=== PATIENT | female | born 2000 | race Caucasian/White ===

== ENCOUNTER → 2021-12-07 15:18 | Outpatient (CLI) | payer OTHER, SELFPAY ==
--- NOTE | ~2021-12-07 | US_ITS ---
EXAMINATION: US OB <= 14 weeks fetus DATE: 12/07/2021 15:45 INDICATION: Uncertain gestational dates TECHNIQUE: Real-time transabdominal and transvaginal obstetric ultrasound. FINDINGS: No prior studies for comparison. The uterus measures 12.1 x 8.2 x 8.7 cm. There is an intrauterine gestational sac, with pole id entified. The crown rump length measures 5.21 cm, which correlates with a estimated gestational age of 11 weeks 6 days. heart tones are identified measuring 161 bpm. IMPRESSION: 1. SL IUP with an EGA of 11 weeks, 6 days (EDC by current ultrasound of 06/22/2022). Reviewed, dictated and finalized at location B. IMPRESSION: 1. SL IUP with an EGA of 11 weeks, 6 days (EDC by current ultrasound of 022).
== END ==
PROVIDERS: PCP Nurse Practitioner; Visit Provider Nurse Practitioner
DX: Z36.87 Encounter for antenatal screening for uncertain dates (principal); Z3A.11 11 weeks gestation of pregnancy
CPT/HCPCS: 76801

== ENCOUNTER 2021-12-28 17:07 | Emergency (ER) | payer OTHER, SELFPAY ==
--- NOTE | 2021-12-28 17:09 | ED.URI ---
HPI - URI/Sore Throat General Chief Complaint: Upper Respiratory Infection Stated Complaint: sore throat Time Seen by Provider: 12/28/21 17:09 Source: patient and RN notes reviewed History of Present Illness HPI Narrative: Patient is a 21-year-old female who presents the urgent care with complaints of a sore throat for the last 2 days. Patient denies of any fever, chills, nausea or vomiting but does state that she has had a headache and some body aches intermittently. Patient denies of any ill exposures and states that she does not have a concern for COVID. Patient states that she is and wants to make sure she does not need treatment for strep. Patient has not taken anything [id number] for her symptoms. No other acute complaints. No acute distress noted. Patient aware of the plan of care. Some parts of this dictation were generated by voice recognition software and may contain typographical and/or grammatical inaccuracies. Related Data Home Medications Medication Instructions Recorded Confirmed mv-mn no.97-folic 180 mcg-dha 25 1 tablet PO DAILY 12/28/21 12/28/21 mg-herb no.293 25 mg chewable tablet (Alive Daily Support ) Allergies Allergy/AdvReac Type Severity Reaction Status Date / Time Penicillins Allergy Intermediate Hives / Verified 12/28/21 17:11 Red Face Review of Systems Review of Systems: CONSTITUTIONAL: Denies fever, chills, or sweats. EYES: Denies visual changes, redness, or discharge. ENT: Denies rhinorrhea, congestion, or otalgia. Reports of a sore throat CARDIOVASCULAR: Denies chest pain, palpitations, or edema. RESPIRATORY: Denies cough or dyspnea. GASTROINTESTINAL: Denies abdominal pain, nausea, vomiting, or diarrhea. GENITOURINARY: Denies dysuria or hematuria. SKIN: Denies rash or itching. MUSCULOSKELETAL: Denies back pain, joint pain, or myalgia. NEUROLOGIC: Reports of intermittent headache All other systems reviewed are negative, except as documented in HPI. [facility] Surgical History Surgical History (Updated 05/04/19 @ 10:[address] CRNA) S/P cholecystectomy Family History Family History (Updated 05/01/19 @ 13:23 by Crystal Hanley RN) Other Unknown family medical history Social History Social History Smoking status: Never smoker Second hand tobacco smoke exposure: No Substance use: never Gender identity (if verbalized by the patient): Female Spiritual care concerns: No Comments At the time of my signature, I reviewed and agree with the nursing past medical, surgical, social, and family history. There is no relevant family history pertinent to the patient complaint. Exam Narrative: GENERAL: This is a well-nourished, well-developed patient, in no apparent distress. HEAD: normocephalic, atraumatic. EYES: PERRL. Sclera clear/white. Vision is grossly intact. EARS: External ears normal, auditory canals clear and without drainage, TMs normal without perforation. Hearing grossly intact. NOSE: External nose normal with no obvious nasal discharge, nares without redness, no rhinorrhea. THROAT: Mucous membranes moist, posterior pharynx clear. Moderate postnasal drainage NECK: Neck supple, non-tender without lymphadenopathy CARDIOVASCULAR: Regular rate and rhythm without murmurs, gallops, or rubs. RESPIRATORY: Clear to auscultation. Breath sounds equal bilaterally. No wheezes, rales, or rhonchi. SKIN: warm, intact with no suspicious lesions or rash, good texture and turgor. NEURO: awake, alert, and oriented to person, place and time. There were no obvious focal neurologic abnormalities. EXTREMITIES: No clubbing, cyanosis, or edema. Course Course Level of Care: Express Care Visit Vital Signs Vital signs: Vital Signs Temperature 99.0 F 12/28/21 17:18 Pulse Rate 105 H 12/28/21 17:18 Respiratory Rate 16 12/28/21 17:18 Blood Pressure 126/65 12/28/21 17:18 Pulse Oximetry 100 12/28/21 17:18 Oxygen Delivery
[2021-12-28 17:18] VITALS: BP 126/65; PULSE 105; RESP 16; TEMP 37.2; O2SAT 100
[2021-12-28 17:33] VITALS: BP 126/65; PULSE 105; RESP 16; TEMP 37.2; O2SAT 100
== END 2021-12-28 17:45 | disposition home or self-care (01) ==
PROVIDERS: Emergency Provider Nurse Practitioner Family; PCP Family Medicine
DX: J02.9 Acute pharyngitis, unspecified (principal)
CPT/HCPCS: 87081; 87880; 99213; G0463

== ENCOUNTER → 2022-01-29 11:30 | Outpatient (CLI) | payer OTHER, SELFPAY ==
--- NOTE | ~2022-01-29 | US_ITS ---
EXAMINATION: US OB /maternal detail DATE: 01/29/2022 12:10 INDICATION: Encounter for screening, unspecified. TECHNIQUE: Real-time ultrasound of the pelvis was performed. COMPARISON: Ultrasound 12/07/2021 FINDINGS: There is a single living fetus in vertex presentation. The placenta is posterior, 5.4 cm from the ce rvix. The cervical length is 3.6 cm on transabdominal images. heart rate is 138 beats per minut e (bpm). The amniotic fluid volume is subjectively normal. The following biometric data were obtained: Biparietal diameter (BPD): 4.5 cm; head circumference (HC): 16.8 cm; abdominal circumference (AC): 14 .3 cm; femur length (FL): 3.0 cm. These measurements are concordant. Estimated weight is 292 g +/- 44 g, which correlates with the 45th percentile when 06/22/22 is used as estimated date of delivery. As single measurements, these parameters are each equal to the following estimated gestational ages w ith ranges of +/- 2 standard deviations: BPD: 19 weeks 5 days (18 weeks 0 days - 21 weeks 3 days). HC: 19 weeks 3 days (18 weeks 0 days - 21 weeks 0 days). AC: 19 weeks 4 days (17 weeks 4 days - 21 weeks 5 days). FL: 19 weeks 1 days (17 weeks 3 days - 21 weeks 0 days). estimated gestational age based solely on measurements from this exam is 19 weeks 3 days +/- 1 weeks 3 days. The cerebral ventricles, cerebellum, cisterna magna, nuchal fold, lip, and visualized portions of the spine are normal. The heart is normal. The diaphragm, stomach, kidneys, and bladder are normal. Ther e are two umbilical arteries to yield a 3-vessel cord. The cord insertion is normal. IMPRESSION: 1. Single living fetus in vertex presentation. 2. Estimated weight is 292 g +/- 44 g, which correlates with the 45th percentile when 06/22/22 is used as estimated date of delivery. This date was determined by ultrasound on 12/07/2021. 3. Normal anatomic survey. Reviewed, dictated and finalized at location A. IMPRESSION: 1. Single living fetus in vertex presentation. 2. Estimated weight is 292 g +/- 44 g, which correlates with the 45th pe rcentile when 06/22/22 is used as estimated date of delivery. This date was det ermined by ultrasound on 12/07/2021. 3. Normal anatomic survey.
== END ==
PROVIDERS: PCP Advanced Practice Midwife; Visit Provider Advanced Practice Midwife
DX: Z36.9 Encounter for antenatal screening, unspecified (principal)
CPT/HCPCS: 76805

== ENCOUNTER 2022-05-23 16:00 | Outpatient (CLI) | payer OTHER, MEDICAID, SELFPAY ==
[2022-05-23 16:33] VITALS: BP 136/70; PULSE 89
[2022-05-23 16:45] VITALS: BP 132/72; PULSE 85
[2022-05-23 16:46] LABS: Basophils Percent Auto 0.1 % (0.2-1.2); Eosinophils Absolute Auto 0.1 K/mm3 (0-0.3); Hematocrit 30.9 % (37.0-47.0); Hemoglobin 10.1 g/dL (12.0-15.0); Immature Granulocyte Absolute 0.05 K/mm3 (0.00-0.031); Immature Granulocyte Percent A 0.5 % (0-0.5); Lymphocytes Absolute Auto 1.85 K/mm3 (0.9-3.2); Lymphocytes Percent Auto 19.7 % (18.3-44.2); Mean Corpuscular HGB Conc 32.7 g/dl (32-36); Mean Corpuscular Hemoglobin 27.9 pg (26-34); Mean Corpuscular Volume 85.4 fl (80-100); Monocytes Absolute Auto 0.8 K/mm3 (0.1-0.6); Monocytes Percent Auto 8.5 % (2.6-8.5); Neutrophils Absolute Auto 6.6 K/mm3 (1.3-6.7); Neutrophils Percent Auto 70.2 % (45.5-73.1); Platelet Count Result 213 k/mm3 (150-375); Red Blood Count 3.62 M/mm3 (4.2-5.4); Red Cell Distribution Width 14.1 % (11.5-14.5); White Blood Count 9.4 K/mm3 (4.5-10.0)
[2022-05-23 16:58] LABS: Alanine Aminotransferase 14 U/L (6-35); Albumin Level 3.6 g/dL (3.5-5.1); Alkaline Phosphatase 125 U/L (38-126); Anion Gap 7 mmol/L (8-16); Aspartate Amino Transferase 22 U/L (14-36); Bilirubin,Total 0.2 mg/dL (0.2-1.3); Blood Urea Nitrogen 6 mg/dL (7-17); Calcium 9.3 mg/dL (8.4-10.2); Carbon Dioxide 22 mmol/L (22-30); Chloride 107 mmol/L (98-107); Estimated Glomerular Filt Rate > 60; Glucose 103 mg/dL (65-110); Potassium 3.7 mmol/L (3.4-5.0); Sodium 136 mmol/L (137-145); Uric Acid 3.3 mg/dL (2.5-7.5)
[2022-05-23 17:00] VITALS: BP 122/81; PULSE 95
[2022-05-23 17:00] LABS: Creatinine Urine 66.3 mg/dL; Total Protein Urine Random 16 mg/dL; Ur Ttl Prot Creatinine Ratio 0.24 mg/mg (0-0.20)
--- NOTE | 2022-05-23 17:06 | PC.NURSE ---
Taylor BELLA updated with pt vs and labs. tracing reviewed with provider. Pt to complete 24hour urine and continue checking blood pressures twice a day.
[2022-05-23 17:10] VITALS: BP 136/70; PULSE 67
[2022-05-23 17:15] VITALS: BMI 39.0
--- NOTE | 2022-05-23 17:15 | PC.NURSE ---
Pt instructed on how to do 24 hour urine. Pt states she understands and will continue to check her pressures twice a day.
== END 2022-05-23 17:15 | disposition home or self-care (01) ==
LOC: ANHOBOP 16:18 → ANHLDR 16:18
PROVIDERS: Advanced Practice Midwife; PCP Family Medicine; Visit Provider Obstetrics & Gynecology Gynecology
DX: O13.9 Gestational [pregnancy-induced] hypertension without significant proteinuria, unspecified trimester (principal); Z3A.00 Weeks of gestation of pregnancy not specified
CPT/HCPCS: 36415; 59025; 80053; 82570; 84156; 84550; 85025; 99199

== ENCOUNTER 2022-05-25 11:35 | Outpatient (NON) | payer OTHER, SELFPAY ==
[2022-05-25 11:35] VITALS: BMI 38.8
[2022-05-25 14:21] LABS: Collection Time Urine 24 HOURS
[2022-05-25 14:23] LABS: Patient Weight 219 Lbs
[2022-05-25 14:25] LABS: Total Volume 24 Hour Urine 2200 ml
[2022-05-25 14:32] LABS: Total Protein Urine 24 Hr 220 mg/24hr (28-141); Total Protein Urine Random 10 mg/dL
[2022-05-25 14:33] LABS: Creatinine Urine 73.7 mg/dL
[2022-05-25 14:57] LABS: Creatinine Clearance Urine 194.5 ml/min (75-125); Total Volume 24 Hour Urine 2200 ml
== END 2022-05-25 11:36 | disposition home or self-care (01) ==
LOC: ANHOBOP 11:42
PROVIDERS: PCP Family Medicine; Visit Provider Advanced Practice Midwife
DX: O13.9 Gestational [pregnancy-induced] hypertension without significant proteinuria, unspecified trimester (principal); Z3A.00 Weeks of gestation of pregnancy not specified
CPT/HCPCS: 81050; 82575; 84156

== ENCOUNTER → 2022-06-02 10:47 | Outpatient (CLI) | payer OTHER, SELFPAY ==
--- NOTE | ~2022-06-02 | US_ITS ---
EXAMINATION: US OB follow up DATE: 06/02/2022 11:23 INDICATION: Size greater than dates. TECHNIQUE: Real-time transabdominal obstetric ultrasound. FINDINGS: Comparison to multiple prior studies sequentially, with oldest reviewed study dated 2021. There is a single living fetus in vertex presentation. The placenta is posterior without placenta pr evia. cardiac activity and movement is noted with a heart rate of 153 beats per minute. T he amniotic fluid volume is normal. [place] measures 15.8 cm. The following biometric data were obtained: BPD: 92mm corresponds to gestational age 37 weeks 3 days. Head circumference: 328mm corresponds to gestational age 37 weeks 2 days. Abdominal circumference: 335mm corresponds to gestational age 37 weeks 3 days. Femur length: 62mm corresponds to gestational age 32 weeks 2 days. Estimated weight: 2862grams +/- 429grams, 30.6%.] IMPRESSION: 1. Single living intrauterine in vertex presentation with an estimated gestational age of 37 weeks 1 days by inititial ultrasound. Appropriate interval growth. 2. Normal placenta. Reviewed, dictated and finalized at location A. AGE WINDER IMPRESSION: 1. Single living intrauterine in vertex presentation with an estimat ed gestational age of 37 weeks 1 days by inititial ultrasound. Appropriate int erval growth. 2. Normal placenta.
== END ==
PROVIDERS: PCP Family Medicine; Visit Provider Advanced Practice Midwife
DX: O36.63X0 Maternal care for excessive fetal growth, third trimester, not applicable or unspecified (principal); Z3A.37 37 weeks gestation of pregnancy
CPT/HCPCS: 76816

== ENCOUNTER 2022-06-04 06:25 | Inpatient (IN) | payer OTHER, SELFPAY ==
[2022-06-04] VITALS (57 sets, daily range): BP systolic 56–159; BP diastolic 33–103; PULSE 77–167; RESP 18; TEMP 36.8–37.2; O2SAT 97–100; BMI 37.4
--- NOTE | 2022-06-04 07:09 | LDADM ---
This patient, Nevaeh Curry, was admitted to Labor/Delivery/Recovery 106 on 06/04/22 at 06:25. Plans for labor, pain management and were discussed with patient. Patient/family oriented to hospital policies and general routines including ID bracelet, bed and alarms, visiting hours, pain management, procedures, bathroom and other care routines, personal items, smoking policy, room service/diet and guest tray routines, security routines, and visiting hours. Patient/Family are encouraged to report perceived risks to care and to ask questions if they do not understand what they are told or what they should do. See OBIX for further documentation.
[2022-06-04 07:16] LABS: Basophils Percent Auto 0.2 % (0.2-1.2); Eosinophils Absolute Auto 0.1 K/mm3 (0-0.3); Eosinophils Percent Auto 1.1 % (0-4.4); Hematocrit 31.8 % (37.0-47.0); Hemoglobin 10.6 g/dL (12.0-15.0); Immature Granulocyte Absolute 0.05 K/mm3 (0.00-0.031); Immature Granulocyte Percent A 0.6 % (0-0.5); Lymphocytes Percent Auto 12.6 % (18.3-44.2); Mean Corpuscular HGB Conc 33.3 g/dl (32-36); Mean Corpuscular Hemoglobin 27.6 pg (26-34); Mean Corpuscular Volume 82.8 fl (80-100); Mean Platelet Volume 10.4 fl (7.4-10.4); Monocytes Percent Auto 11.9 % (2.6-8.5); Neutrophils Absolute Auto 6.5 K/mm3 (1.3-6.7); Neutrophils Percent Auto 73.6 % (45.5-73.1); Platelet Count Result 191 k/mm3 (150-375); Red Blood Count 3.84 M/mm3 (4.2-5.4); Red Cell Distribution Width 14.3 % (11.5-14.5); White Blood Count 8.8 K/mm3 (4.5-10.0)
[2022-06-04] MEDS: LACTATED RINGERS 1,000 ML 125 ML IV CONT ×2 (07:20→14:30)
[2022-06-04] MEDS: OXYTOCIN 30 UNITS/NS 500 ML 30 UNITS/500 ML BAG IV CONT (07:20)
[2022-06-04] MEDS: CLINDAMYCIN 900 MG/D5W 50 ML 900 MG/50 ML PIGGYBACK 50 MG IVPB ×2 (07:20→15:20)
[2022-06-04 07:27] LABS: Alanine Aminotransferase 15 U/L (6-35); Albumin Level 3.5 g/dL (3.5-5.1); Alkaline Phosphatase 134 U/L (38-126); Anion Gap 8 mmol/L (8-16); Aspartate Amino Transferase 23 U/L (14-36); Bilirubin,Total 0.3 mg/dL (0.2-1.3); Blood Urea Nitrogen 6 mg/dL (7-17); Calcium 8.8 mg/dL (8.4-10.2); Carbon Dioxide 22 mmol/L (22-30); Chloride 107 mmol/L (98-107); Estimated CRCL calculation 167 ml/min; Estimated Glomerular Filt Rate > 60; Glucose 86 mg/dL (65-110); Potassium 3.7 mmol/L (3.4-5.0); Sodium 137 mmol/L (137-145); Uric Acid 3.5 mg/dL (2.5-7.5)
--- NOTE | 2022-06-04 08:30 | WPDOBADMIT ---
Obstetrics - Admit Note Admission Note: record reviewed. No pertinent additions to the history and/or any subsequent changes in the physical findings that are not consistent with the expected course of the were found. Additions to the history and/or subsequent changes in the physical findings follow. None.
[2022-06-04 11:53] LABS: Rapid Plasma Reagin Non-Reactive (NonReactive)
--- NOTE | 2022-06-04 13:11 | PM.OBPNLAB ---
Pain Control Date/time seen: 06/04/22 13:05 Pain control: tolerating well Pelvic Exam Dilation (cm): 4 Effacement (%): 70 station: -3 Amniotic membrane status: Intact Contractions Monitor mode: External Contraction pattern: Irregular Status status: Category l Assessment and Plan Assessment: induction ongoing Comments: Discussed plan of care with Nevaeh and her partner. Discussed amniotomy risks and benefits and she is agreeable. AROM performed with return of moderate amount of clear fluid. Continue oxytocin infusion. Anticipate vaginal .
--- NOTE | 2022-06-04 15:08 | WPDANESEPP ---
Anes - Eval Pre Procedure Procedure: Labor epidural Date/Time: 06/04/22 15:08 Surgeon: Bridget Preop Diagnosis: Pain during labor Pre Op Diagnosis: Induction of Labor Patient Data Age: 22 Gender: F Height: 1.63 m Weight: 99 kg Last Vital Signs Temp 37.0 C 06/04/22 09:30 Pulse 81 06/04/22 14:30 BP 145/89 H 06/04/22 14:30 O2 Del Method Room Air 06/04/22 07:08 Allergies Allergy/AdvReac Type Severity Reaction Status Date / Time Penicillins Allergy Intermediate Hives / Verified 05/23/22 15:50 Red Face Home Medications Medication Instructions Recorded Confirmed Type mv-mn no.97-folic 180 mcg-dha 25 1 tablet PO DAILY 12/28/21 06/04/22 History mg-herb no.293 25 mg chewable tablet (Alive Daily Support ) Laboratory Tests 06/04/22 06/04/22 06/04/22 07:03 07:03 07:03 WBC 8.8 K/mm3 K/mm3 (4.5-10.0) RBC 3.84 M/mm3 L M/mm3 (4.2-5.4) Hgb 10.6 g/dL L g/dL (12.0-15.0) Hct 31.8 % L % (37.0-47.0) MCV 82.8 fl fl (80-100) MCH 27.6 pg pg (26-34) MCHC 33.3 g/dl g/dl (32-36) RDW 14.3 % % (11.5-14.5) Plt Count 191 k/mm3 k/mm3 (150-375) MPV 10.4 fl fl (7.4-10.4) Immature Gran % (Auto) 0.6 % H % (0-0.5) Neut % (Auto) 73.6 % H % (45.5-73.1) Lymph % (Auto) 12.6 % L % (18.3-44.2) [place] % (Auto) 11.9 % H % (2.6-8.5) Eos % (Auto) 1.1 % % (0-4.4) Baso % (Auto) 0.2 % % (0.2-1.2) Lymph # (Auto) 1.10 K/mm3 K/mm3 (0.9-3.2) [place] # (Auto) 1.0 K/mm3 H K/mm3 (0.1-0.6) Eos # (Auto) 0.1 K/mm3 K/mm3 (0-0.3) Baso # (Auto) 0.0 K/mm3 K/mm3 (0.0-0.1) Abs Immat Gran (auto) 0.05 K/mm3 H K/mm3 (0.00-0.031) Absolute Neuts (auto) 6.5 K/mm3 K/mm3 (1.3-6.7) Absolute Nucleated RBC 0.0 K/mm3 K/mm3 (0.0-0.012) Nucleated RBC % 0.0 % % (0.0-0.2) Sodium Potassium Chloride Carbon Dioxide Anion Gap BUN Creatinine Estim Creat Clear Calc Estimated GFR Glucose Uric Acid Cancelled Calcium Total Bilirubin AST ALT Alkaline Phosphatase Total Protein Albumin RPR Non-reactive (NonReactive) Blood Type Antibody Screen 06/04/22 06/04/22 07:03 07:03 WBC RBC Hgb Hct MCV MCH MCHC RDW Plt Count MPV Immature Gran % (Auto) Neut % (Auto) Lymph % (Auto) [place] % (Auto) Eos % (Auto) Baso % (Auto) Lymph # (Auto) [place] # (Auto) Eos # (Auto) Baso # (Auto) Abs Immat Gran (auto) Absolute Neuts (auto) Absolute Nucleated RBC Nucleated RBC % Sodium 137 mmol/L mmol/L (137-145) Potassium 3.7 mmol/L mmol/L (3.4-5.0) Chloride 107 mmol/L mmol/L (98-107) Carbon Dioxide 22 mmol/L mmol/L (22-30) Anion Gap 8 mmol/L mmol/L (8-16) BUN 6 mg/dL L mg/dL (7-17) Creatinine 0.50 mg/dL L mg/dL (0.7-1.0) Estim Creat Clear Calc 167 ml/min ml/min Estimated GFR > 60 (59 - ) Glucose 86 mg/dL mg/dL (65-110) Uric Acid 3.5 mg/dL mg/dL (2.5-7.5) Calcium 8.8 mg/dL mg/dL (8.4-10.2) Total Bilirubin 0.3 mg/dL mg/dL (0.2-1.3) AST 23 U/L U/L (14-36) ALT 15 U/L U/L (6-35) Alkaline Phosphatase 134 U/L H U/L (38-126) Total Protein 7.0 g/dL g/dL (6.3-8.2) Albumin 3.5 g/dL g/dL (3.5-5.1) RPR Blood Type A Positive Antibody Screen Negative
--- NOTE | 2022-06-04 16:32 | PM.OBPRVD ---
OB - Delivery Note Procedure Delivery date: 06/04/22 Procedure: Events: Gestational Hypertension and Positive Group B Strep (GBS) Induction method: AROM and Per Pitocin Protocol Delivery monitor: External FHT and External Uterine Route of delivery: Episiotomy description: None Laceration Description: None Specimen: Yes Quantitative Blood Loss (ml): 150 Anesthesia type: Epidural Disposition: Floor Narrative: CNM called for delivery. Patient complete with the urge to push. She pushed with contractions and quickly brought the head to . After the delivery of the head there was excellent restitution followed by delivery of anterior and posterior shoulders. The remainder of the infant was delivered easily and placed on maternal abdomen for care by the Nursery team. After 2 minutes of life the cord was doubly clamped and cut. Cord blood and cord gases were obtained. All every counts were correct. Baby Date of : 06/04/22 Time of : 16:11 Weeks of gestation at delivery: 37 Infant gender: Male Weight (pounds): 7 Weight (ounces): 10 presentation: vertex position: Right Occiput Anterior Placenta delivery description: Spontaneous and Normal Configuration Cord Vessel Description: 3 Vessels score one minute: 8 score five minutes: 9
--- NOTE | 2022-06-04 16:40 | PM.OBDSVD ---
DS: Admitting Diagnosis Discharge Date 06/05/22 Admitting Diagnosis IUP at 37 weeks 3 days. GHTN History of Headaches DS: Discharge Diagnosis Discharge Diagnosis (1) Vaginal delivery: Code(s): O80 - Encounter for full-term uncomplicated delivery Status: Acute Assessment and Plan: Perineum intact. Lochia WNL. (2) Gestational hypertension affecting second : Code(s): O13.9 - Gestational [-induced] hypertension without significant proteinuria, unspecified trimester Status: Acute Assessment and Plan: BPs WNL. OB - DS: Summary Hospital Course Hospital Course: Uncomplicated OB Procedures : Ultrasound OB Procedures Intrapartum: Spontaneous Vag Delivery and GBS prophylaxis OB Procedures: : None Peripartum Data Delivery Method: Natural Vaginal Laceration Description: None Episiotomy description: None complications: none Status at Discharge Functional status at discharge: independent ambulation Overall status at discharge: patient is progressing back to baseline Time Spent with Patient Time attestation: Total time spent providing and/or coordinating discharge services: DS: Data Data Completed and Pending Labs on day of discharge: Labs from last 24 hours 06/04/22 06/04/22 06/04/22 07:03 07:03 07:03 WBC RBC Hgb Hct MCV MCH MCHC RDW Plt Count MPV Immature Gran % (Auto) Neut % (Auto) Lymph % (Auto) [place] % (Auto) Eos % (Auto) Baso % (Auto) Lymph # (Auto) [place] # (Auto) Eos # (Auto) Baso # (Auto) Abs Immat Gran (auto) Absolute Neuts (auto) Absolute Nucleated RBC Nucleated RBC % Sodium 137 Potassium 3.7 Chloride 107 Carbon Dioxide 22 Anion Gap 8 BUN 6 L Creatinine 0.50 L Estim Creat Clear Calc 167 Estimated GFR > 60 Glucose 86 Uric Acid 3.5 Calcium 8.8 Total Bilirubin 0.3 AST 23 ALT 15 Alkaline Phosphatase 134 H Total Protein 7.0 Albumin 3.5 RPR Non-reactive Blood Type A Positive Antibody Screen Negative 06/04/22 06/04/22 07:03 07:03 WBC 8.8 RBC 3.84 L Hgb 10.6 L Hct 31.8 L MCV 82.8 MCH 27.6 MCHC 33.3 RDW 14.3 Plt Count 191 MPV 10.4 Immature Gran % (Auto) 0.6 H Neut % (Auto) 73.6 H Lymph % (Auto) 12.6 L [place] % (Auto) 11.9 H Eos % (Auto) 1.1 Baso % (Auto) 0.2 Lymph # (Auto) 1.10 [place] # (Auto) 1.0 H Eos # (Auto) 0.1 Baso # (Auto) 0.0 Abs Immat Gran (auto) 0.05 H Absolute Neuts (auto) 6.5 Absolute Nucleated RBC 0.0 Nucleated RBC % 0.0 Sodium Potassium Chloride Carbon Dioxide Anion Gap BUN Creatinine Estim Creat Clear Calc Estimated GFR Glucose Uric Acid Cancelled Calcium Total Bilirubin AST ALT Alkaline Phosphatase Total Protein Albumin RPR Blood Type Antibody Screen Discharge Plan Discharge Attending physician on discharge: Maryanne Gill Discharging Clinician: Taylor Castillo Patient Disposition: Home, Self-Care Activity: october shower Diet: as tolerated and regular Patient Instructions: Antibiotic Form Stand Alone Forms: General Discharge Information Follow-up/Referrals: Taylor Castillo, CNM [Certified Nurse [employer]] - (6 week exam) Discharge Medications: New polysaccharide iron complex 150 mg iron Capsule 150 mg PO BIDWM 30 Days Qty: 60 0RF docusate sodium 100 mg Capsule 100 mg PO BID PRN (Reason: Constipation) 30 Days Qty: 60 0RF ibuprofen 600 mg Tablet 600 mg PO Q6H PRN (Reason: Cramping) 14 Days Qty: 30 0RF Continued Alive Daily Support 180 mcg-25 mg- 25 mg Tablet,Chewable 1 tablet PO DAILY Date of admission: 06/04/22 06:25 Primary Care Provider: Booker,Tim Traore Admitting Provider: Maryanne Gill Attending physician on admission: Maryanne Gill
--- NOTE | 2022-06-04 18:45 | OBPPTRN ---
Patient transferred to post room #285. Support person present. Oriented to unit, room, information board, rooming in, admission packet and security measures. Patient verbalizes understanding.
[2022-06-04] MEDS: ACETAMINOPHEN 325 MG TABLET 650 MG PO (19:15)
[2022-06-04] MEDS: IBUPROFEN 600 MG TABLET PO (20:25)
[2022-06-05] MEDS: IBUPROFEN 600 MG TABLET PO ×2 (02:33→11:30)
[2022-06-05 02:35] VITALS: TEMP 37.7
[2022-06-05 04:14] VITALS: BP 112/64; PULSE 85; RESP 16; TEMP 36.9; O2SAT 97
[2022-06-05 05:41] LABS: Hematocrit 31.4 % (37.0-47.0); Hemoglobin 10.2 g/dL (12.0-15.0)
--- NOTE | 2022-06-05 07:55 | WPDANLDPN2 ---
Anes-Prog Note L&D Date/Time: 06/05/22 07:55 Comfortable throughout: labor and delivery Neuraxial method: epidural Epidural/Spinal procedure site: clean & non-tender Neuro status: Neuro function grossly intact. Cardiovascular status: normal Respiratory status: normal Airway patency: baseline Mental status: baseline Post-Op hydration status: normal Vital Signs: Last Vital Signs Temp 36.9 C 06/05/22 04:14 Pulse 85 06/05/22 04:14 Resp 16 06/05/22 04:14 BP 112/64 06/05/22 04:14 Pulse Ox 97 06/05/22 04:14 O2 Del Method Room Air 06/04/22 07:08 Pain score (VAS): 07/10 I/O: Intake & Output 06/04/22 06/04/22 06/05/22 15:59 23:59 07:59 Intake Total 1050 50 84 Output Total 2850 Balance 1050 50 -2766 Post-procedural complaints: none Patient feedback: Patient satisfied with anesthetic care.
[2022-06-05 08:00] VITALS: PULSE 93; RESP 16; O2SAT 98
[2022-06-05 08:30] VITALS: BP 132/75; PULSE 109; RESP 18; TEMP 36.8; O2SAT 98
--- NOTE | 2022-06-05 08:52 | PM.OBPNVD ---
OB - PN: Subj Subjective Date/time seen: 06/05/22 0730 Patient comments: no complaints and pain well controlled baby status: doing well and other (doing well, having latching issues. ) [place] feeding status: breast and bottle feeding OB - PN: Obj Data Labs 06/05/22 05:33 06/04/22 07:03 Labs: Laboratory Results - last 24 hr 06/04/22 06/04/22 06/05/22 07:03 07:03 05:33 Hgb 10.2 L Hct 31.4 L RPR Non-reactive Blood Type A Positive Antibody Screen Negative OB - PN A/P Plan day: 1 Plan: discharge home Comments: Requests post discharge home Time Spent With Patient Time: Total time spent is greater than 50% in coordination of care (as documented) at patient's floor/unit and/or counseling patient: Review of Systems Review of Systems: All systems reviewed & are unremarkable except as noted in HPI and below Exam Narrative: Alert and oriented. Mood is pleasant and cooperative. Urinating without difficulty. Denies passing any large clots. Perineum with minimal edema. Const: General: healthy appearing and no acute distress Orientation/consciousness: patient oriented x3 Limitations: no limitations Resp: Effort & Inspection: normal respiratory effort Auscultation: clear to auscultation bilaterally Cardio: Rate: regular rate GI: Inspection: normal to inspection : Other: Fundus firm and 3 below umbilicus. Skin: General skin exam: normal color and no rashes or lesions noted Neuro: General: patient oriented x3 Extrem: General: normal to inspection Psych: Appearance: grossly normal Mental Status: mental status grossly normal Affect: normal affect Thought process: Normal thought process present
[2022-06-05] MEDS: MULTIVIT/MIN/PREN/FOL AC/IRON TABLET 1 TAB PO (09:15)
[2022-06-05] MEDS: DOCUSATE SODIUM 100 MG CAPSULE PO (09:15)
[2022-06-05] MEDS: ACETAMINOPHEN 325 MG TABLET 650 MG PO ×2 (09:25→17:06)
[2022-06-05 12:29] VITALS: BP 127/81; PULSE 93; RESP 16; TEMP 37.1; O2SAT 98
[2022-06-05 12:30] VITALS: PULSE 93; RESP 16; O2SAT 98
== END 2022-06-05 18:18 | disposition home or self-care (01) | DRG 807 ==
LOC: ANHLDR 16:43 → ANHOB2 19:01
PROVIDERS: Admitting Provider Obstetrics & Gynecology Gynecology; PCP Family Medicine; Referring Provider Advanced Practice Midwife; Visit Provider Obstetrics & Gynecology Gynecology
DX: O13.4 Gestational [pregnancy-induced] hypertension without significant proteinuria, complicating childbirth (principal); Z37.0 Single live birth; Z3A.37 37 weeks gestation of pregnancy; O99.824 Streptococcus B carrier state complicating childbirth
CPT/HCPCS: 36415; 80053; 84550; 85014; 85018; 85025; 86592; 86850; 86900; 86901; 88307; A9270; J2590; J2795; J7120

== ENCOUNTER 2022-06-11 13:29 | Outpatient (CLI) | payer OTHER, SELFPAY ==
[2022-06-11 13:54] VITALS: BP 139/90; PULSE 63
[2022-06-11 14:00] VITALS: BP 139/90; PULSE 63
--- NOTE | 2022-06-11 14:00 | PC.NURSE ---
No Urine to be sent do to patient being PP.
[2022-06-11 14:01] VITALS: BP 112/88; PULSE 75
[2022-06-11 14:15] VITALS: BP 128/85; PULSE 53
[2022-06-11 14:23] LABS: Basophils Percent Auto 0.4 % (0.2-1.2); Eosinophils Absolute Auto 0.1 K/mm3 (0-0.3); Eosinophils Percent Auto 1.3 % (0-4.4); Hematocrit 43.3 % (37.0-47.0); Hemoglobin 13.7 g/dL (12.0-15.0); Immature Granulocyte Absolute 0.03 K/mm3 (0.00-0.031); Immature Granulocyte Percent A 0.3 % (0-0.5); Lymphocytes Absolute Auto 3.03 K/mm3 (0.9-3.2); Lymphocytes Percent Auto 29.9 % (18.3-44.2); Mean Corpuscular HGB Conc 31.6 g/dl (32-36); Mean Corpuscular Hemoglobin 26.8 pg (26-34); Mean Corpuscular Volume 84.7 fl (80-100); Mean Platelet Volume 10.4 fl (7.4-10.4); Monocytes Absolute Auto 0.7 K/mm3 (0.1-0.6); Monocytes Percent Auto 6.6 % (2.6-8.5); Neutrophils Absolute Auto 6.2 K/mm3 (1.3-6.7); Neutrophils Percent Auto 61.5 % (45.5-73.1); Platelet Count Result 365 k/mm3 (150-375); Red Blood Count 5.11 M/mm3 (4.2-5.4); Red Cell Distribution Width 14.1 % (11.5-14.5); White Blood Count 10.1 K/mm3 (4.5-10.0)
[2022-06-11 14:30] VITALS: BP 123/80; PULSE 56
[2022-06-11 14:32] LABS: Alanine Aminotransferase 20 U/L (6-35); Albumin Level 4.3 g/dL (3.5-5.1); Alkaline Phosphatase 102 U/L (38-126); Anion Gap 6 mmol/L (8-16); Aspartate Amino Transferase 28 U/L (14-36); Bilirubin,Total 0.4 mg/dL (0.2-1.3); Blood Urea Nitrogen 15 mg/dL (7-17); Calcium 8.9 mg/dL (8.4-10.2); Carbon Dioxide 26 mmol/L (22-30); Chloride 105 mmol/L (98-107); Estimated Glomerular Filt Rate > 60; Glucose 82 mg/dL (65-110); Potassium 4.7 mmol/L (3.4-5.0); Sodium 137 mmol/L (137-145); Uric Acid 6.1 mg/dL (2.5-7.5)
== END 2022-06-11 14:50 | disposition home or self-care (01) ==
LOC: ANHOBOP 13:34 → ANHOBPP 13:39
PROVIDERS: PCP Family Medicine; Visit Provider Obstetrics & Gynecology Gynecology
DX: O13.3 Gestational [pregnancy-induced] hypertension without significant proteinuria, third trimester (principal); Z3A.00 Weeks of gestation of pregnancy not specified
CPT/HCPCS: 36415; 80053; 84550; 85025; 99199

== ENCOUNTER → 2022-06-27 12:02 | Outpatient (CLI) | payer OTHER, SELFPAY ==
--- NOTE | ~2022-06-27 | CT_ITS ---
Pre and postcontrast Head CT History: Headache Technique: Axial non-contrast imaging of the brain was performed prior to and following intravenous administration of 100 cc of Omnipaque 350 contrast material. Sagittal and coronal reformatted images were constructed. Dose reduction technique was used on this scan by utilizing automated exposure cont rol and iterative reconstruction technique. The dose-length product (DLP) was 1199.14 mGy-cm. Findings: There is no evidence of intracranial hemorrhage, mass lesion, or acute infarct. Brain par enchyma appears normal. The ventricles and subarachnoid spaces are normal in size. The calvarium ap pears normal. The visualized paranasal sinuses and mastoid air cells are clear. No abnormal postcontrast enhancement identified. Impression: No significant abnormality seen. Reviewed, dictated and finalized at [facility]. [employer] OPERATOR Impression: No significant abnormality seen.
== END ==
PROVIDERS: PCP Family Medicine; Visit Provider Obstetrics & Gynecology Gynecology
DX: G44.52 New daily persistent headache (NDPH) (principal)
CPT/HCPCS: 70470; Q9967

== ENCOUNTER 2024-05-16 10:14 | Outpatient (CLI) | payer OTHER, SELFPAY ==
--- NOTE | ~2024-05-16 | US_ITS ---
EXAMINATION: US OB <= 14 weeks fetus INDICATION: Preg;HX of SAB TECHNIQUE: Sonography of the pelvis was performed by transabdominal and transvaginal techniques. COMPARISON: None. RESULT: Uterus: 13.5 x 5.2 x 7.2 cm. Anteverted. Homogenous myometrium. Intrauterine gestational sac: Single present. Yolk sac: present. Embryo: Single present. [place] rump length: 1.45 cm, corresponding gestational age 7 weeks, 6 days. Gestational heart rate: present 138 bpm. Subgestational hematoma: Absent . Right ovary: 4.2 x 2.1 x 2.7 cm. Vascular flow is present. No adnexal mass. Left ovary: 3.2 x 2.1 x 3.8 cm. Vascular flow is present. 1.6 cm simple cyst or dominant follicle. No adnexal mass. Pelvis free fluid: None. IMPRESSION: Single, live intrauterine gestation. Estimated Gestational Age: 7 weeks, 6 days by crown rump length. RENAE by ultrasound 12/27/2024. Reviewed, dictated and finalized at location K. RCUTTER IMPRESSION: Single, live intrauterine gestation. Estimated Gestational Age: 7 weeks, 6 days by crown rump length. RENAE by ultras ound 12/27/2024.
== END 2024-05-16 10:15 | disposition home or self-care (01) ==
LOC: MICIMG 10:15
PROVIDERS: PCP Obstetrics & Gynecology Gynecology; Visit Provider Obstetrics & Gynecology Gynecology
DX: O26.21 Pregnancy care for patient with recurrent pregnancy loss, first trimester (principal); Z3A.01 Less than 8 weeks gestation of pregnancy
CPT/HCPCS: 76801

== ENCOUNTER 2024-12-23 07:03 | Inpatient (IN) | payer OTHER, SELFPAY ==
[2024-12-23] VITALS (14 sets, daily range): BP systolic 80–141; BP diastolic 47–90; PULSE 66–96; RESP 16–20; TEMP 36.6–37.5; O2SAT 98–99; BMI 37.0
[2024-12-23] MEDS: OXYTOCIN 30 UNITS/NS 500 ML 30 UNITS/500 ML BAG 999 UNITS IV CONT (07:37)
--- NOTE | 2024-12-23 07:45 | WPDOBADMIT ---
Obstetrics - Admit Note Admission Note: record reviewed. No pertinent additions to the history and/or any subsequent changes in the physical findings that are not consistent with the expected course of the were found. Additions to the history and/or subsequent changes in the physical findings follow. Admit in active labor
--- NOTE | 2024-12-23 07:45 | PM.OBPRVD ---
OB - Vaginal Delivery Note Procedure Delivery date: 12/23/24 Induction method: None Delivery augmentation: Rupture of Membranes Delivery monitor: External FHT and External Uterine Route of delivery: Episiotomy description: None Laceration Description: None Specimen: No Quantitative Blood Loss (ml): 35 Anesthesia type: Epidural Disposition: Floor Complications: No immediate complications Baby Date of : 12/23/24 Time of : 07:34 Gestational Age by Date: 39 gender: Female presentation: vertex position: Left Occiput Anterior Placenta delivery description: Spontaneous Cord Vessel Description: 3 Vessels, Clamped/Cut and Delayed Cord Clamping score one minute: 8 score five minutes: 8
[2024-12-23 07:55] LABS: Basophils Percent Auto 0.3 % (0.2-1.2); Eosinophils Absolute Auto 0.1 K/mm3 (0-0.3); Eosinophils Percent Auto 0.5 % (0-4.4); Hematocrit 39.9 % (37.0-47.0); Immature Granulocyte Absolute 0.14 K/mm3 (0.00-0.031); Immature Granulocyte Percent A 1.1 % (0-0.5); Lymphocytes Absolute Auto 2.06 K/mm3 (0.9-3.2); Lymphocytes Percent Auto 16.1 % (18.3-44.2); Mean Corpuscular HGB Conc 32.6 g/dl (32-36); Mean Corpuscular Hemoglobin 27.8 pg (26-34); Mean Corpuscular Volume 85.3 fl (80-100); Mean Platelet Volume 11.7 fl (7.4-10.4); Monocytes Percent Auto 7.6 % (2.6-8.5); Neutrophils Absolute Auto 9.5 K/mm3 (1.3-6.7); Neutrophils Percent Auto 74.4 % (45.5-73.1); Platelet Count Result 173 k/mm3 (150-375); Red Blood Count 4.68 M/mm3 (4.2-5.4); Red Cell Distribution Width 14.6 % (11.5-14.5); White Blood Count 12.8 K/mm3 (4.5-10.0)
--- NOTE | 2024-12-23 07:57 | LDADM ---
This patient, Nevaeh Curry, was admitted to Labor/Delivery/Recovery 104 on 12/23/24 at 07:03. Plans for labor, pain management and were discussed with patient. Patient/family oriented to hospital policies and general routines including ID bracelet, bed and alarms, visiting hours, pain management, procedures, bathroom and other care routines, personal items, smoking policy, room service/diet and guest tray routines, security routines, and visiting hours. Patient/Family are encouraged to report perceived risks to care and to ask questions if they do not understand what they are told or what they should do. See OBIX for further documentation.
[2024-12-23 09:39] LABS: Syphilis IgG/IgM Antibody Non-Reactive (Nonreactive)
--- NOTE | 2024-12-23 10:20 | OBPPTRN ---
Patient transferred to post room #291 via wheelchair. Support person present. Oriented to unit, room, information board, rooming in, admission packet and security measures. Patient verbalizes understanding.
[2024-12-23] MEDS: MULTIVIT/MIN/PREN/FOL AC/IRON TABLET 1 TAB PO (10:38)
[2024-12-23] MEDS: DOCUSATE SODIUM 100 MG CAPSULE PO (10:38)
--- NOTE | 2024-12-23 12:10 | PC.NURSE ---
Introductions were made, then consulted with patient to assess needs related to . Mother works well with her infant. Reviewed positioning and ear, shoulder, hip alignment, supporting the breast to facilitate a deep latch, asymmetrical latch (off-center), leading with the chin with a big, open, wide gape and body close to mother. Attempts were made to put infant to breast - very unhappy and will latch for 2-3 sucks and come off the nipple. Mother was able to express drops of colostrum in infants mouth to help entice infant to latch. Mother voiced understanding of skin to skin, stimulating with massage touch, responsive feedings, hand expressed colostrum, talking to infant to encourage if it has been 2 -2.5 hours since the start of the last , to call if infant does not latch, or if there is discomfort with . Parents voiced understanding of information, demonstrated learning and will call if there is a request for assistance. Reported to the Primary RN.
--- NOTE | 2024-12-23 13:00 | PC.NURSE ---
Mother updated this RN of feeding - mother states that was able to successfully latch for feeding without pain. Mother will call this RN if assistance is needed.
[2024-12-24 05:36] LABS: Hematocrit 39.2 % (37.0-47.0); Hemoglobin 12.5 g/dL (12.0-15.0)
[2024-12-24 08:30] VITALS: BP 127/63; PULSE 57; RESP 18; TEMP 36.5; O2SAT 98
--- NOTE | 2024-12-24 08:35 | P.PNOB_ITS ---
OB - PN: Subj Subjective Date/time seen: 12/24/24 08:35 Patient comments: no complaints, pain well controlled, incisional pain, tolerating diet and flatus present OB - PN: Obj Data Labs 12/24/24 03:39 Labs: Laboratory Results - last 24 hr 12/23/24 12/24/24 07:34 03:39 Hgb 12.5 Hct 39.2 Syphilis IgG/IgM Ab Non-reactive Antibody Screen Negative OB - PN A/P Plan day: 1 Plan: routine care Comments: No problems, routine care Time Spent With Patient Time: Total time spent is greater than 50% in coordination of care (as documented) at patient's floor/unit and/or counseling patient: Exam 2 Const: General: comfortable, no acute distress and alert Resp: Effort & Inspection: normal respiratory effort Auscultation: no crackles, no rales and no rhonchi Cardio: Rate: regular rate Heart sounds: no click, no murmurs and no rubs GI: Inspection: non-distended GI Palp: No Tenderness to palpation present (GI) Auscultation: normal bowel sounds Other: Incision - CDI Extrem: General: normal to inspection, no pedal edema and no calf tenderness
--- NOTE | 2024-12-24 08:38 | P.PNOB_ITS ---
OB - PN: Subj Subjective Date/time seen: 12/24/24 08:38 Patient comments: no complaints, pain well controlled, incisional pain, tolerating diet and flatus present OB - PN: Obj Data Labs 12/24/24 03:39 Labs: Laboratory Results - last 24 hr 12/23/24 12/24/24 07:34 03:39 Hgb 12.5 Hct 39.2 Syphilis IgG/IgM Ab Non-reactive Antibody Screen Negative OB - PN A/P Plan day: 1 Plan: routine care Comments: No problems, routine care Time Spent With Patient Time: Total time spent is greater than 50% in coordination of care (as documented) at patient's floor/unit and/or counseling patient: Exam 2 Const: General: comfortable, no acute distress and alert Resp: Effort & Inspection: normal respiratory effort Auscultation: no crackles, no rales and no rhonchi Cardio: Rate: regular rate Heart sounds: no click, no murmurs and no rubs GI: Inspection: non-distended GI Palp: No Tenderness to palpation present (GI) Auscultation: normal bowel sounds Other: Incision - CDI Extrem: General: normal to inspection, no pedal edema and no calf tenderness
--- NOTE | 2024-12-24 08:38 | PM.OBDSVD ---
DS: Admitting Diagnosis Discharge Date 12/24/2024 Admitting Diagnosis Term DS: Discharge Diagnosis Discharge Diagnosis (1) Term delivered: Code(s): O80 - Encounter for full-term uncomplicated delivery Status: Acute OB - DS: Summary OB Procedures : None OB Procedures Intrapartum: Spontaneous Vag Delivery OB Procedures: : None Peripartum Data Laceration Description: None Episiotomy description: None Time Spent with Patient Time attestation: Total time spent providing and/or coordinating discharge services: DS: Data Data Completed and Pending Labs on day of discharge: Labs from last 24 hours 12/24/24 12/23/24 03:39 07:34 Hgb 12.5 Hct 39.2 Syphilis IgG/IgM Ab Non-reactive Antibody Screen Negative Discharge Plan Discharge Consulting providers: Ariana Hooper Discharging Clinician: Fadi Renteria Patient Disposition: Home Activity: pelvic rest Diet: regular Patient Instructions: Antibiotic Form Patient Language: Sinhala Stand Alone Forms: General Discharge Information Follow-up/Referrals: Fadi Renteria MD [Physician] - Discharge Medications: Continued Alive Daily Support 180 mcg-25 mg- 25 mg Tablet,Chewable 1 tablet PO DAILY polysaccharide iron complex 150 mg iron Capsule 150 mg PO BIDWM 30 Days Qty: 60 0RF fluoxetine 20 mg capsule 20 mg PO ONCE Date of admission: 12/23/24 07:03 Primary Care Provider: PHYSICIAN,ASSOCIATE PROFESSOR OF ART Admitting Provider: Fadi Renteria Attending physician on admission: Fadi Renteria Condition: Stable
[2024-12-24] MEDS: DOCUSATE SODIUM 100 MG CAPSULE PO (09:11)
[2024-12-24] MEDS: MULTIVIT/MIN/PREN/FOL AC/IRON TABLET 1 TAB PO (09:11)
== END 2024-12-24 11:36 | disposition home or self-care (01) | DRG 807 ==
LOC: ANHLDR 07:30 → ANHOB2 10:30
PROVIDERS: Advanced Practice Midwife; Admitting Provider Obstetrics & Gynecology; Visit Provider Obstetrics & Gynecology
DX: O77.0 Labor and delivery complicated by meconium in amniotic fluid (principal); Z37.0 Single live birth; Z3A.39 39 weeks gestation of pregnancy
CPT/HCPCS: 36415; 85014; 85018; 85025; 86593; 86850; 86900; 86901; A9270; J2590

== ENCOUNTER 2025-06-16 03:41 | Day surgery (SDC) | payer OTHER, MEDICAID, SELFPAY ==
--- NOTE | 2025-06-14 08:39 | SUR.PREOP ---
[facility] has started construction of its new state of the art ER which will open Spring 2026. With this, we anticipate parking may be a challenge for some our surgical patients and families. Parking spaces are limited but are available for all Surgical, obstetrics, and ER patients sharing this lot. If you arrive and find you are having a hard time finding a parking space, please note that we understand the challenges, please drive around the hospital and park near Hospital Entrance 1. When you enter this entrance, you can ask a volunteer to direct or take you back to the surgical waiting area to check in. We appreciate everyone?s understanding of these expected challenges while we build for your future. Report to the Outpatient Waiting Room, entrance under the green pavilion located off [address], at time _1230_ on date _06/16/25_. Planned Procedure Time: _1430_.? Time changes happen often and if your time is changed the preop area will call you the afternoon before. - You and your visitor will be asked to self-screen and do not enter if you have any COVID symptoms. Please call surgeon if you need to reschedule. - A mask is optional within the hospital at this time. Patients may have clear liquids (water, carbonated beverages, clear teas, apple juice) until 3 hours (1130) prior to surgery with a maximum of 20 ounces. - No food from midnight until time of surgery and no smoking, or chewing tobacco (or any form of nicotine). No chewing gum, candy or mints. Take only the following medications with a SIP of water on the morning of surgery: _FLUOXETINE_ DO NOT STOP ANY OF YOUR OTHER PRESCRIPTION MEDICATIONS PRIOR TO SURGERY EXCEPT THE FOLLOWING Hold all vitamins and supplements for 3 days per anesthesiologist. Medications to discontinue per physician _NA_ Date to take last dose_NA_ Please no make-up, nail bolivian, hairspray, perfume, deodorant, or body powder the day of surgery.? No jewelry (including any body piercings) or valuables the day of surgery, leave them at home.? Please take a shower or bath the night before, or the morning of, surgery with an antibacterial soap.? Wear comfortable, loose fitting clothing. - Jewelry must be removed prior to entering the operating room.? Rings and piercings that are not removed may be cut off. - The hospital will not accept responsibility for valuables.? - Please leave all valuables, including medications, at home the day of surgery. If you are going home after surgery, a licensed star route mail driver must drive you home.? - NO public transportation without another adult if you receive anesthesia. - We recommend that an adult stay with you for 24 hours following discharge. - We also recommend that you do not drive, make important decision, drink alcoholic beverages, or take any drugs that were not prescribed by your health care provider for at least 24 hours after your discharge time. Follow any additional instructions given to you from your surgeon. Telephone instructions given to _MARCELLO_and asked if any additional questions and then verbalized understanding. Patient advised to call surgeon office or pre surgery nurse liaison [phone] if any additional questions.
[2025-06-14 08:46] VITALS: BMI 35.2
[2025-06-16] VITALS (11 sets, daily range): BP systolic 112–133; BP diastolic 60–89; PULSE 71–97; RESP 12–18; TEMP 36.2–36.4; O2SAT 98–100; BMI 35.4
--- OUTSIDE RECORDS SUMMARY | 2025-06-16 03:44 | XMS_ITS | Clinical Summary ---
Author Organization [facility] [address] - [address] [facility] [address] [place] [address] Phone Care Team Providers Care Manager Technical Support Name Role Phone Unavailable Primary Care Provider Unavailabl e Social History Tobacco Use Types Packs/Day Years Used Date Smoking Tobacco: Never Assessed Comments Unknown Sex and Gender Information Value Date Recorded Sex Assigned at Not on file Legal Sex Female 8:27 AM CDT Gender Identity Not on file Sexual Orientation Not on file Plan of Treatment Health Maintenance Due Date Last Done Comments HPV VACCINES (1 - 3-dose series) 2014 DTAP/TDAP/TD VACCINES (1 - Tdap) 2018 HEPATITIS B VACCINES (1 of 3 - 19+ 3-dose series) 01/29 CERVICAL CANCER SCREENING 02/17/2020 HPV/Cotest (21-29) 02/17/2020 PAP SMEAR 02/17/2020 INFLUENZA VACCINE (#1) 2025 Insurance OPTIONS PPO [id number]
--- OUTSIDE RECORDS SUMMARY | 2025-06-16 03:44 | XMS_ITS | Clinical Summary ---
Author Organization [address] Address [address] [place] [id number] Care Team Providers Care Growth Hacker Name Role Phone Kirsten Yates MD Primary Care Pro vider Allergies Active Allergy Reactions Criticality Noted Date Comments Penicillins Medications No known medications Active Problems Problem Noted Date Diagnosed Date Osteoarthritis of lumbar spine 09/18/2011 Notalgia 07/09/2011 Social History Tobacco Use Types Packs/Day Years Used Date Smoking Tobacco: Never Tobacco Cessation:Counseling Given: No Personal Safety Answer Date Recorded Getting School Help Needed Not on file 08/24 Comments No Sex and Gender Information Value Date Recorded Sex Assigned at Not on file 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 Gender Identity Not on file Sexual Orientation Not on file Obstetrics History Para Term AB IAB SAB Ectopic Multiple Livin g Live Births 1 1 Date Outcome GA Total Labor Labor/2nd/3rd Weight Sex Type Anes PTL Darlene A1 A5 Name Clin Last Filed Vital Signs Vital Sign Reading Time Taken Comments Blood Pressure 142/84 10/04/2018 5:18 AM CDT Pulse 71 10/04/2018 5:18 AM CDT Temperature 36.5 C (97.7 F) 10/04/2018 5:18 AM CDT Respiratory Rate 18 10/04/2018 5:18 AM CDT Oxygen Saturation 98% 10/04/2018 5:18 AM CDT Inhaled Oxygen Concentration - - Weight 81.8 kg (180 lb 5.4 oz) 10/04/2018 5:18 A M CDT Height 165.1 cm (5' 5) 10/04/2018 5:18 AM CDT Body Mass Index 30.01 10/04/2018 5:18 AM CDT Plan of Treatment Not on file Insurance [facility] CHOICE PLUS [facility] CHOICE PLUS [facility] CHOICE PLUS Member Subscriber Plan / Payer (Ef fective 2017-Present) Name:Nevaeh Curry Relation to Subscriber:Child Name:MATEO CURRY Date of :1975 (Home) Address: [address] [place] [address] Payer ID:[id number] (NAIC) Type:[facility] HMO/PPO Address: [place] [phone] Care Teams Growth Hacker Relationship Specialty Start Date End Date Kirsten Yates MD PCP - General Pediatrics 04/24/18
--- OUTSIDE RECORDS SUMMARY | 2025-06-16 03:44 | XMS_ITS | Data Portability ---
Author Organization [facility] Address [address] [place] [address] Care Team Providers Care Instruction Assistant Principal Name Role Phone ROSA CUMMINGS Primary Care Provider [phone] Assessment Encounter Date Assessment Date Assessment LastModified by Organization Details LastModified Time 12/16/2024 12/16/2024 Patient is ___weeks . Discussed plan. [email or web address] Not available 12/16/2024 16:56:14 Plan of Treatment Reminders Order Date Submit Date Provider Last Modified By Organization Details Last Modified Time Details Appointments SURG Diagnosti c Lap 2024 01:30P Candice RENTERIA MD Not available Not available Not available SURG POST OP 2024 10:45A Candice RENTERIA MD Not available Not available Not available Lab None recorded. Referral None recorded. Procedures None recorded. Surgeries salpingec jamie, laparosco pic (SURG) [address], [address] [place] [address], [address], 06/02/2025 10:06:43 laparosco py, diagnosti c (SURG) [address], [facility] [address], [address], 05/25/2025 09:53:41 hysterosc opy, with endometri al ablation (SURG) 2024 025 [facility], [address], [place], [address], 05/28/2025 10:03:55 Imaging None recorded. Medication Orders metronida zole 500 mg tablet 2024 025 [id number], [address] [facility], [place], [place], [id number], 02/09/2025 05:01:07 Patient TargetsNo targets recorded. Patient InstructionsNo instructions recorded. Reason for Referral None Reported. Results Created Date Observation Date Name Description Value Unit Range Abnormal Flag Note LastModifiedBy Organization Detail LastModifiedTime 01/07/2001/06/2025 WOMEN 'S HEALT H SWAB, MITRA donald species, tma Negati ve negati ve Not Available [facility] (Lab) [address] [facility], [place], [address], 01/07/2025 12:54:55 01/07/2001/06/2025 WOMEN 'S HEALT H SWAB, MITRA donald glabrata, tma Negati ve negati ve Not Available [facility] (Lab) [address] [facility], [place], [address], 01/07/2025 12:54:55 01/07/2001/06/2025 WOMEN 'S HEALT H SWAB, MITRA trichomonas vaginalis, tma Negati ve negati ve This assay tests for and diffe renti ates betwe en Nia da glabr bev, the Nia da speci es group (C. albic ans, C. tropi calis , C. parap nicholas is, C. dubli alan is), and Trich omona s vagin sunny by Trans cript ion-M ediat ed Ampli ficat ion (TMA) . Not Available [facility] (Lab) [address] [facility], [place], [address], 01/07/2025 12:54:55 01/07/20 25 01/06/2025 WOMEN 'S HEALT H SWAB, MITRA bacterial vaginosis (bv), tma Positi ve negati ve abnormal This test detec ts ribos omal RNA from bacte zuly assoc iated with bacte rial vagin osis (BV), inclu ding Lacto bacil deepika (L. gasse ri, L. crisp atus and L. jen efrain), Gardn erell a vagin sunny, and Atopo bium vagin ae by Trans cript ion-M ediat ed Ampli ficat ion (TMA) . A singl e quali tativ e resul t is repor france based on instr ument softw are to deter mine BV posit shantelle or negat shantelle statu s. Not Available [facility] (Lab) [address], [place], [address], 01/07/2025 12:54:55 11/13/19 25 11/12/2024 US, obste tric, follo w-up No observ ation record ed. [email or web address] [facility] [address], [place], [address], 11/12/2024 13:15:31 11/13/19 25 11/12/2024 US, obste tric, follo w-up No observ ation record ed. [email or web address] Elin [address], [place], [address], 11/26/2024 12:09:16 Result Notes None recorded. Problems Name Problem SNOMED Code Status Onset Date Resolution Date Notes Provider Name and Address Organization Details Recorded Time Past pregnanc y history of gestatio nal hyperten cierra 569816198 Active 2021 pregnanc y bASA daily Lucero paniagua, [facility] 22:33:48 Past pregnanc y history of gestatio nal hyperten cierra 262342422 Completed 2021 pregnanc y bASA daily Lucero paniagua, [facility] 22:33:48 Body mass index 30+ - obesity 339806265 Completed nst 37wks--- pt declined NST Maryanne paniagua, [facility] 5 18:08:32 Pregnanc y 07079591 Completed 202401/06/2025 Roselia Momin [facility] 5 14:23:18 Headache 83317608 Active 2024 Maryanne Garvey [facility] 5 20:00:40 Mixed anxiety and depressi ve disorder 205697566 Active 2024 Maryanne Garvye [facility] 5 10:43:20 Problem Notes None recorded. Procedures Surgical History Date Name Laterality Status Provider Name and Address Organization Details Recorded Time 4 Date of Last Pap Smear completed [facility] 08/05/2024 19:51:50 8 Dilation and Curettage completed [facility] 08/05/2024 19:56:49 5 extraction of wisdom tooth completed [facility] 08/05/2024 19:56:37 Imaging Results None recorded. Procedure Notes None recorded. Medical Equipment None Reported. Allergies Allergen ID Allergen Name Allergen Category Reaction Reaction Severity Criticality Documentation Date Start Date Code Code System Note Provider Name and Address Organization Details Recorded Time 76448 Penicilli n Not available hives mild Not available 08/05/2024 80475 RxNorm Maryanne Garvey [facility] 5 19:50:07 21182 Product containin g penicilli n (product) medicatio n hives Not available Not available 05/22/20252021 28615 8001 SNOMED Not Available [facility] - External Data Service - prod 02:39:42 Medications Name Sig Start Date Stop Date Status Note LastModified by Organization Details LastModified Time fluoxetine 40 mg capsule TAKE 1 CAPSULE BY MOUTH DAILY active Not Available Not Available No t Available Diflucan 150 mg tablet Take 1 tablet every day by oral route as directed for 2 days. 02/05 completed Not Available Not Available Not Available metronidazo le 500 mg tablet Take 1 tablet twice a day by oral route as directed for 7 days. 02/09 completed Not Available Not Available Not Available fluoxetine 10 mg capsule TAKE 1 TABLET BY MOUTH DAILY 12/02 completed Not Available Not Available Not Available sertraline 25 mg tablet TAKE 1 TABLET BY MOUTH DAILY 11/25 completed Not Available Not Available Not Available Vitamin D2 1,250 mcg (50,000 unit) capsule Take by oral route. active Not Available Not Available No t Available fluoxetine 20 mg capsule TAKE 1 CAPSULE BY MOUTH DAILY active Not Available Not Available No t Available clotrimazol e 1 % topical cream APPLY TO AFFECTED AND SURROUNDI NG AREAS OF SKIN TWICE DAILY MORNING AND EVENING REMOVE PRIOR TO NURSING active Not Available Not Available No t Available moxifloxaci n 0.5 % eye drops INSTILL 1 DROP INTO THE LEFT EYE FOUR TIMES DAILY FOR 10 DAYS active Not Available Not Available No t Available active Not Available Not Avai lable Not Available Vitals Date Recorded Body height Body mass index (BMI) Body weight Systolic And Diastolic Provider Name and Address Organization Details Last Updated DateTime 12/16/2024 162.56 cm 38.3 kg/m2 139485.1 g 125/78 mm[Hg] Maryanne Garvey [facility] 12/16/2024 16:56:35 Date Recorded Body height Body mass index (BMI) Body weight Systolic And Diastolic Provider Name and Address Organization Details Last Updated DateTime 01/06/2025 162.56 cm 35 kg/m2 13141.84 g 115/84 mm[Hg] Roselia [facility] 01/06/2025 14:23:36 Date Recorded Body height Body mass index (BMI) Body weight Systolic And Diastolic Provider Name and Address Organization Details Last Updated DateTime 01/22/2025 162.56 cm 34.3 kg/m2 34637.47 g 135/84 mm[Hg] Roselia [facility] 01/22/2025 12:49:08 Date Recorded Body height Body mass index (BMI) Body weight Systolic And Diastolic Provider Name and Address Organization Details Last Updated DateTime 05/22/2025 162.56 cm 35.4 kg/m2 83983.03 g 127/79 mm[Hg] Merary Delgado [facility] 05/22/2025 11:28:48 Social History Question Answer Notes LastModified by Organizat ion Details LastModified Time Tobacco Smoking Status Never Smoker Maryanne paniagua, [facility] 08/05/2024 19:56:18 Do You Have An Advance Directive? No Information n ot available 08/05/2024 If You Are , What Was Your Level Of Alcohol Consumption Prior To ? None [email or web address] Information not available 08/05/2024 Are You Blind Or Do You Have Difficulty Seeing? No [email or web address] Information n ot available 08/05/2024 What Is Your Level Of Caffeine Consumption? Moderate [email or web address] Information not available 08/05/2024 How Much Tobacco Do You Chew? None [email or web address] Information not available 08/05/2024 In The 14 Days Before Symptom Onset, Have You Had Close Contact With A Laboratory-confirm ed COVID-19 While That Case Was Ill? No [email or web address] Information n ot available 08/05/2024 In The 14 Days Before Symptom Onset, Have You Had Close Contact With A Person Who Is Under Investigation For COVID-19 While That Person Was Ill? No [email or web address] Information not available 08/05/2024 Have You Been To An Area Known To Be High Risk For COVID-19? No [email or web address] Information not available 08/05/2024 Are You Deaf Or Do You Have Serious Difficulty Hearing? No [email or web address] Information not available 08/05/2024 What Type Of Diet Are You Following? REGULAR [email or web address] Information n ot available 08/05/2024 What Is The Highest Grade Or Level Of School You Have Completed Or The Highest Degree You Have Received? [id number] [email or web address] Information not available 08/05/2024 Are There Any Guns Present In Your Home? Yes [email or web address] Information not available 08/05/2024 Do You Use Protection During Sex? Usually [email or web address] Information not available 08/05/2024 Do You Use Your Seat Belt Or Car Seat Routinely? Yes [email or web address] Information not available 08/05/2024 Do You Have Smoke And Carbon Monoxide Detectors In Your Home? Yes [email or web address] Information not available 08/05/2024 How Much Tobacco Do You Smoke? No [email or web address] Information not available 08/05/2024 Do You Use Sunscreen Routinely? No [email or web address] Information not available 08/05/2024 Has Tobacco Cessation Counseling Been Provided? No [email or web address] Information not available 08/05/2024 Have You Used IV Drugs? No [email or web address] Information not available 08/05/2024 Do You Have Difficulty Walking Or Climbing Stairs? No [email or web address] Information not available 08/05/2024 Sex: Unknown Functional Status Question Answer Note LastModified by Organizat ion Details LastModified Time Do you use any illicit or recreational drugs? No [email or web address] Information not available 08/05/2024 Do you or have you ever used any other forms of tobacco or nicotine? No [email or web address] Information not available 08/05/2024 What is your level of alcohol consumption? None Information not available 08/05/2024 Are you able to walk independently without assistance or assistive devices? YESWOREST [email or web address] Information not available 08/05/2024 Are you able to care for yourself independently? Yes [email or web address] Information not available 08/05/2024 Do you have difficulty dressing, bathing, grooming, or toileting? No [email or web address] Information not available 08/05/2024 What is your exercise level? Moderate [email or web address] Information not available 08/05/2024 Mental Status Question Answer Note LastModified by Organization D etails LastModified Time Do you feel stressed (tense, restless, nervous, or anxious, or unable to sleep at night)? [id number] Information not available 08/05/2024 Family History Relationship Description Onset Age of this Age Resolved Age Notes LastModified by Organization Details LastModified Time Unspecified Relation Family history unknown Not available 08/05 19:50:07 Maternal Grandfather Diabetes mellitus [email or web address] Not available 08/05 19:55:13 Maternal Grandmother Diabetes mellitus [email or web address] Not available 08/05 19:55:13 Paternal Grandfather Diabetes mellitus [email or web address] Not available 08/05 19:55:13 Paternal Grandfather Coronary arterioscler osis [email or web address] Not available 2024 12:28:48 Paternal Grandfather Hypertensive disorder [email or web address] Not available 08/05 19:55:41 Paternal Grandmother Diabetes mellitus [email or web address] Not available 08/05 19:55:13 Paternal Grandmother Hypertensive disorder [email or web address] Not available 08/05 19:55:41 Father Hypertensive disorder Not available 08/05 19:55:41 Father Hypercholest erolemia Not available 08/05 19:55:50 Medical History Condition Response Allergies (Food, seasonal, environmental ) N Other N Drug/Latex Allergies/Reactions N Blood Transfusion N Breast Cancer N Dermatologic Disorders N Lung Disease N Defects or Inherited Disease N Breast Problem N Gestational Diabetes N Hematologic disorders N Anesthesia Complications N History of STI N Deep Vein Thrombosis N Polycystic ovary syndrome N Anxiety Disorder Y Autoimmune disease N Arthritis N Polyps N Infertility N Acid Reflux (GERD) N History of abnormal pap N Cancer N Varicosities N Stroke N Neurologic/Epilepsy N Endometriosis N High Cholesterol N Fibromyalgia N Headaches Y Kidney Disease N Heart Problems N Thyroid Problems N Kidney or Bladder Problems N GI Problems N Eating Disorder N Anemia N Art (IVF or FET) N Psychiatric Illness N Ovarian Cancer N Diabetes N Pulmonary (TB, Asthma) N Hepatitis/Liver Disease N No Past Medical History N Eczema N Urinary Tract Infection N Abuse/Domestic Violence N Asthma N Trauma/Violence N Depression/ depression Y Heart Disease N Pre-Eclampsia N Hypertension Y Osteoporosis N Thrombophilias N Gynecological History Statement/Question Response Abnormal Pap N Date of Last Mammogram Date of LMP 03/25/2024 On BCP's at Conception? N N Was last menstrual period normal Y STIs/STDs N HPV Vaccine N Duration of Flow (days) 3 Current Control Method Breastfeedi ng/CURRY Age at First Child 19 Date of control 08/10/2021 Are cycles usually normal Y Date of Last Colonoscopy Sexually Active? Y Date of DEXA bone scan Date of Last Pap Smear 03/21/2024 Sexual Problems? N LMP Approximate N Obstetrics History GPAL:G 4 P 3 0 1 3 Type Value Full Term 3 Spontaneous 1 Living 3 Total 4 Past Encounters Encounter ID Performer Location Encounter Start Date Encounter Closed Date Diagnosis/Indication Diagnosis SNOMED-CT Code Diagnosis ICD10 Code Diagnosis IMO Codes Diagnosis Note [id number] Fadi Renteria MD [facility] [address],[place] [address] 08/05/2024 13:52:02 08/05/2024 15:43:51 screening for malformation 433170008 Z36.3 Z3A.19 [id number] [facility] [address],[place] [address] 08/05/2024 14:04:52 08/07/2024 14:14:31 Gestation period, 19 weeks 76694643 Z3A.19 Routine an tenatal care 425309672 Z34.90 Venereal d isease screening 676628345 Z11.3 [id number] Fadi Renteria MD [facility] [address],[place] [address] 09/02/2024 14:38:19 09/02/2024 15:24:00 condition affecting obstetrical care of mother 854680200 O35.8XX0 Z3A.23 [id number] [facility] [address],[place] [address] 09/02/2024 15:24:00 09/02/2024 15:48:02 Gestation period, 23 weeks 82627012 Z3A.23 [id number] [facility] [address] [place] [address] 09/30/2024 09:37:37 09/30/2024 10:24:52 Gestation period, 27 weeks 95888276 Z3A.27 [id number] Ariana Hooper CNM [facility] [address],[place] [address] 10/21/2024 14:42:28 11/05/2024 09:14:20 [id number] Ariana Hooper [facility] [address],[place] [address] 10/22/2024 10:32:34 10/22/2024 11:09:37 Gestation period, 30 weeks 24924081 Z3A.30 4659837 [id number] Fadi Renteria MD [facility] [address],[place] [address] 11/12/2024 12:28:42 11/12/2024 13:10:06 care: obstetric risk 839491591 O09.293 Z3A.33 7412724 [id number] Fadi Renteria MD [facility] [address],[place] [address] 11/12/2024 12:41:40 11/12/2024 13:59:32 care status 466777856 Z34.83 [id number] Ariana Hooper [facility] [address],[place] [address] 11/25/2024 10:57:58 11/25/2024 14:12:51 Gestation period, 35 weeks 14786999 Z3A.35 9618662 [id number] Ariana Hooper [facility] [address],[place] [address] 12/02/2024 16:48:17 12/03/2024 08:33:07 Gestation period, 36 weeks 87399565 Z3A.36 1185414 Vaginal irritation 48253 6004 N89.8 [id number] [facility] [address] [place] [address] 12/09/2024 17:27:23 12/20/2024 09:12:50 [id number] [facility] [address],[place] [address] 12/16/2024 15:55:51 12/16/2024 16:40:30 Gestation period, 38 weeks 62261490 Z3A.38 3817272 [id number] [facility] [address] [address] 01/06/2025 14:08:51 01/06/2025 15:17:55 Bacterial vaginosis 725553595 N76.0 B96.89 703795 precaution s reviewed [id number] [facility] [address],[facility] [place] [address] 01/22/2025 12:36:35 01/24/2025 23:59:49 care status 005080018 Z39.2 1009300 doing well, call if desires IUDf/u 6 mo wwe [id number] Fadi Renteria MD [facility] [address],[facility] [place] [address] 05/22/2025 11:19:15 05/22/2025 12:33:55 Menorrhagia 008676526 N92.0 This patient is a 25-year-ol d female presents for heavy vaginal bleeding. She has longstandi ng very heavy bleeding. Her menses are regular. However, they require double protection . Patient has accidents, getting blood on her bedding and clothing. Is affected work. She changes a pad or tampon every hour. She leaks blood around the pad and tampon. This bleeding has a profound impact on her quality of life and her activities of daily living. discussed treatment in detail. agreed to endometria l ablation. Patient understand s that laparoscop ic bilateral salpingect annie be required. Patient also talks about pelvic pain. We agreed to examined the pelvis via diagnostic laparoscop y at the time of salpingect annie. The patient understand s the procedure. The procedure was described to the patient in great detail. the patient also understand s the risks. The risks were also explained in detail. She understand s that injuries May occur during surgery. She understand s these injuries can result in hospitaliz ation, more surgery, and severe illness. She understand s there is risk of hemorrhage and infection. To proceed with laparoscop ic salpingect annie and diagnostic laparoscop y along with endometria l ablation with hysterosco py. I spent over 30 minutes on her care in total. Pain in female pelvis 42 5892716 R10.20 [id number] Unwanted fertility 46766 5005 Z30.09 64743150 Health Concerns Section Related Observation LastModified by Organization Detai ls LastModified Time None Recorded Concern Status LastModified by Organization Details LastModified Time None Recorded Advance Directives Directive N: Payers Insurance Date Sequence Insurance Name Policy Number Policy South Covered Member ID South Member ID Guarantor Name 04/12/2025 [facility] [id number] Nevaeh Curry 06/13/2025 1 [facility] [id number] Castillo Le [id number] Nevaeh Curry 06/13/2025 2 [place]: [facility] Nevaeh Curry [id number] Nevaeh Curry Notes Date Note Type Note Provider Name and Address Organization Details Recorded Time 5 text/html Generic HPI TemplateReported by Patient Maryanne paniagua, [facility] 12/16/2024 16:57:06 5 text/html ROS as noted in the HPI pp 2 weeks uncomplicated vaginal delivery, has a fishy odor, increased d/c, no uterine pain, pain with urination, some pain with movement on pelvic bone, afebrile no nausea or vomiting Ariana Hooper CNM [address], [place], [address], [facility] 01/06/2025 15:11:17 5 text/html VisitReported by PatientHPIFor quality, patient reportsnsvd. For context, patient reportscomplications of : none,complications of labor: none, complications: none,feeding choice: breast,good support from partner/family, andresumed menstrual bleeding no. For associated symptoms, patient reportsno abnormal bleeding,no vaginal discharge,no pelvic pain,laceration well healed,no constipation,no fecal incontinence,no dysuria,no urinary incontinence,no fever,no problems,no mastitis, andnormal mood. For contraception plan, patient reportsdeclines contraception. planning vasectomyROS as noted in the HPI Ariana Hooper CNM [address], [place], [address], [facility] 01/23/2025 19:19:24 5 text/html This patient is a 25-year-old female presents for heavy vaginal bleeding. She has longstanding very heavy bleeding. Her menses are regular. However, they require double protection. Patient has accidents, getting blood on her bedding and clothing. Is affected work. She changes a pad or tampon every hour. She leaks blood around the pad and tampon. This bleeding has a profound impact on her quality of life and her activities of daily living. discussed treatment in detail. agreed to endometrial ablation. Patient understands that laparoscopic bilateral salpingectomy be required. Patient also talks about pelvic pain. We agreed to examined the pelvis via diagnostic laparoscopy at the time of salpingectomy. The patient understands the procedure. The procedure was described to the patient in great detail. the patient also understands the risks. The risks were also explained in detail. She understands that injuries May occur during surgery. She understands these injuries can result in hospitalization, more surgery, and severe illness. She understands there is risk of hemorrhage and infection. To proceed with laparoscopic salpingectomy and diagnostic laparoscopy along with endometrial ablation with hysteroscopy. I spent over 30 minutes on her care in total. Fadi Renteria MD [address], [place], [address], [facility] 05/22/2025 12:30:58 OBGyn Episode Ob Episode Information Episode Created Date Number of Fetuses Patient Bloodtype Patient rh Status Prepregnancy Weight lbs Domestic Partner Domestic Partner Phone Father Name Airfield Operations Specialist Status 08/05/19 25 1 CLOSED Fetus Data First Name Last Name Admitted to NICU Weight (g) Sex Living Outcome Pediatric Complications Fetus ID Race Codes Race Delivery Type 3458.63 9 M Full Term [id number] Vaginal Delivery Live Calculation Initial Live Date Initial Exam Date Initial Exam Provider Initial Ultrasound Date Last Menstrual Period Date Ultra Sound Weeks Gestation 0 Eighteen To Twenty Week Live Update Ultra Sound Date Fundal Height At Umbil Quickening Date Ultra Sound Latest Weeks Gestation Final Live Confirmed By Final Live Confirmed Date Final Live Date Ultra Sound Latest Days Gestation 0 0 Menstrual History Last Menstrual Date Menses Monthly On Bcp Conception Prior Menses Frequency Hcg Plus Date Menarche Onset Age Delivery Information Delivery Date Delivery Type Labor Anesthesia Weeks Gestation Incision Type Labor Labor Length Hrs Delivered By Post Complications Tubal Sterilization Discharge Date Comments 2 37 GHTN Discharge Information Feeding Method Contraceptive Method Maternal HG B and HCT Levels Ob Episode Information Episode Created Date Number of Fetuses Patient Bloodtype Patient rh Status Prepregnancy Weight lbs Domestic Partner Domestic Partner Phone Father Name Airfield Operations Specialist Status 08/05/19 25 1 CLOSED Fetus Data First Name Last Name Admitted to NICU Weight (g) Sex Living Outcome Pediatric Complications Fetus ID Race Codes Race Delivery Type , Spontane ous [id number] Live Calculation Initial Live Date Initial Exam Date Initial Exam Provider Initial Ultrasound Date Last Menstrual Period Date Ultra Sound Weeks Gestation 0 Eighteen To Twenty Week Live Update Ultra Sound Date Fundal Height At Umbil Quickening Date Ultra Sound Latest Weeks Gestation Final Live Confirmed By Final Live Confirmed Date Final Live Date Ultra Sound Latest Days Gestation 0 0 Menstrual History Last Menstrual Date Menses Monthly On Bcp Conception Prior Menses Frequency Hcg Plus Date Menarche Onset Age Delivery Information Delivery Date Delivery Type Labor Anesthesia Weeks Gestation Incision Type Labor Labor Length Hrs Delivered By Post Complications Tubal Sterilization Discharge Date Comments 8 Discharge Information Feeding Method Contraceptive Method Maternal HG B and HCT Levels Ob Episode Information Episode Created Date Number of Fetuses Patient Bloodtype Patient rh Status Prepregnancy Weight lbs Domestic Partner Domestic Partner Phone Father Name Airfield Operations Specialist Status 08/05/19 25 1 A Positive 207 Castillo Lumma CLOSED Fetus Data First Name Last Name Admitted to NICU Weight (g) Sex Living Outcome Pediatric Complications Fetus ID Race Codes Race Delivery Type [place] Lorenza false [phone] [phone] F true Full Term [id number] Vaginal Delivery Problems Problem Notes Problem Name Start Date End Date Resolution Snomed Code Not e Past history of gestational hypertension [id number] 2021 bASA daily Body mass index 30+ - obesity [id number] nst 37wks---pt declined NST Live Calculation Initial Live Date Initial Exam Date Initial Exam Provider Initial Ultrasound Date Last Menstrual Period Date Ultra Sound Weeks Gestation 12/30/2024 06/17/2024 06/17/2024 03/25/2024 12 Eighteen To Twenty Week Live Update Ultra Sound Date Fundal Height At Umbil Quickening Date Ultra Sound Latest Weeks Gestation Final Live Confirmed By Final Live Confirmed Date Final Live Date Ultra Sound Latest Days Gestation 08/05/19 25 19 12/31/19 25 3 Pre-kayley Flowsheet Flowsheet Date 08/05/2024 Gallo Score Blood Edema Fundus Height Fundus Units Glucose Ketones Leukocytes Nitrite Labor Signs Protein Cervic Dilation Cervic Effacement Cervic Station neg none none trace Type Weight in lbs Pre/Post Dialysis Refused Weight 209.138976537375 BP Diastolic BP Location Tested BP Systolic BP Type 76 116 Fetus Heart Rate Present Fetus Movement A Yes Comments history of 2 previous vagina l deliveries, last gestational HTN, rec bASA daily. reviewed anatomy scan and choroid plexus cysts, anatomy complete, transfer of care, continue care Flowsheet Date 09/02/2024 Gallo Score Blood Edema Fundus Height Fundus Units Glucose Ketones Leukocytes Nitrite Labor Signs Protein Cervic Dilation Cervic Effacement Cervic Station Type Weight in lbs Pre/Post Dialysis Refused BP Diastolic BP Location Tested BP Systolic BP Type Fetus Heart Rate Present Fetus Movement Comments Flowsheet Date 09/02/2024 Gallo Score Blood Edema Fundus Height Fundus Units Glucose Ketones Leukocytes Nitrite Labor Signs Protein Cervic Dilation Cervic Effacement Cervic Station neg trace Type Weight in lbs Pre/Post Dialysis Refused Weight 214.563559474113 BP Diastolic BP Location Tested BP Systolic BP Type 77 124 Fetus Heart Rate Present Fetus Movement A Yes Comments Patient is having some swell ing. +FM ,precautions and education f/u 4 weeks with gct Flowsheet Date 09/30/2024 Gallo Score Blood Edema Fundus Height Fundus Units Glucose Ketones Leukocytes Nitrite Labor Signs Protein Cervic Dilation Cervic Effacement Cervic Station neg trace 27 cm Type Weight in lbs Pre/Post Dialysis Refused 220.099684159799 BP Diastolic BP Location Tested BP Systolic BP Type 83 136 Fetus Heart Rate Present A 138 Fetus Movement A Yes Comments Patient is having some back pain, pelvic pain, vaginal odar and swelling. will call out flagyl, +FM, GCT today, precautions and education f/u 2 weeks Flowsheet Date 10/21/2024 Gallo Score Blood Edema Fundus Height Fundus Units Glucose Ketones Leukocytes Nitrite Labor Signs Protein Cervic Dilation Cervic Effacement Cervic Station Type Weight in lbs Pre/Post Dialysis Refused BP Diastolic BP Location Tested BP Systolic BP Type Fetus Heart Rate Present Fetus Movement Comments Flowsheet Date 10/22/2024 Gallo Score Blood Edema Fundus Height Fundus Units Glucose Ketones Leukocytes Nitrite Labor Signs Protein Cervic Dilation Cervic Effacement Cervic Station neg trace 29 cm Type Weight in lbs Pre/Post Dialysis Refused 222.09145529140 BP Diastolic BP Location Tested BP Systolic BP Type 80 127 Fetus Heart Rate Present A 134 Fetus Movement A Yes Comments Patient is having pain and s welling. fell 2 weeks ago went to [place] and everything ok precautions and education +FM f/u 2 weeks Flowsheet Date 11/12/2024 Gallo Score Blood Edema Fundus Height Fundus Units Glucose Ketones Leukocytes Nitrite Labor Signs Protein Cervic Dilation Cervic Effacement Cervic Station Type Weight in lbs Pre/Post Dialysis Refused BP Diastolic BP Location Tested BP Systolic BP Type Fetus Heart Rate Present Fetus Movement Comments Flowsheet Date 11/12/2024 Gallo Score Blood Edema Fundus Height Fundus Units Glucose Ketones Leukocytes Nitrite Labor Signs Protein Cervic Dilation Cervic Effacement Cervic Station Type Weight in lbs Pre/Post Dialysis Refused Weight 223.182593000207 BP Diastolic BP Location Tested BP Systolic BP Type 70 L arm 115 sitting Fetus Heart Rate Present A 145 Fetus Movement A Yes Comments no complaints, no problems, routine care, no contractions, no vaginal bleeding, no loss of fluid, no cramping Flowsheet Date 11/25/2024 Gallo Score Blood Edema Fundus Height Fundus Units Glucose Ketones Leukocytes Nitrite Labor Signs Protein Cervic Dilation Cervic Effacement Cervic Station neg trace 36 cm Type Weight in lbs Pre/Post Dialysis Refused 222.85003990392 BP Diastolic BP Location Tested BP Systolic BP Type 79 125 Fetus Heart Rate Present A 145 Fetus Movement A Yes Comments Patient is having some contr actions, discharge, swelling and nausea. reviewed precautions education considering 39 week IOL, +FM doing well f/u one week with gbs Flowsheet Date 12/02/2024 Gallo Score Blood Edema Fundus Height Fundus Units Glucose Ketones Leukocytes Nitrite Labor Signs Protein Cervic Dilation Cervic Effacement Cervic Station neg trace 1cm Type Weight in lbs Pre/Post Dialysis Refused Weight 225.149327296847 BP Diastolic BP Location Tested BP Systolic BP Type 75 126 Fetus Heart Rate Present A 150 Fetus Movement A Yes Comments Patient is having pain, cont ractions, discharge, swelling and nausea. +FM, doing well, odor, will tx with flagyl, vericose veins, ice ok, precautions and education gbs collected f/u one week Flowsheet Date 12/09/2024 Gallo Score Blood Edema Fundus Height Fundus Units Glucose Ketones Leukocytes Nitrite Labor Signs Protein Cervic Dilation Cervic Effacement Cervic Station Type Weight in lbs Pre/Post Dialysis Refused BP Diastolic BP Location Tested BP Systolic BP Type Fetus Heart Rate Present Fetus Movement Comments Flowsheet Date 12/16/2024 Gallo Score Blood Edema Fundus Height Fundus Units Glucose Ketones Leukocytes Nitrite Labor Signs Protein Cervic Dilation Cervic Effacement Cervic Station neg trace 2cm 50% -2 Type Weight in lbs Pre/Post Dialysis Refused Weight 223.499263175700 BP Diastolic BP Location Tested BP Systolic BP Type 78 125 Fetus Heart Rate Present Fetus Movement A Yes Comments Patient is having pain, cont ractions and swelling.+FM, education and precautions, preadmit done offered IOL at 39 weeks, pt to call, both prev labors induced Flowsheet Date 01/06/2025 Gallo Score Blood Edema Fundus Height Fundus Units Glucose Ketones Leukocytes Nitrite Labor Signs Protein Cervic Dilation Cervic Effacement Cervic Station Type Weight in lbs Pre/Post Dialysis Refused Weight 204.459387681902 BP Diastolic BP Location Tested BP Systolic BP Type 84 L arm 115 sitting Fetus Heart Rate Present Fetus Movement Comments Menstrual History Last Menstrual Date Menses Monthly On Bcp Conception Prior Menses Frequency Hcg Plus Date Menarche Onset Age 0903/25/2024 Delivery Information Delivery Date Delivery Type Labor Anesthesia Weeks Gestation Incision Type Labor Labor Length Hrs Delivered By Post Complications Tubal Sterilization Discharge Date Comments 5 Induce d 39 false None false Discharge Information Feeding Method Contraceptive Method Maternal HG B and HCT Levels Ob Episode Information Episode Created Date Number of Fetuses Patient Bloodtype Patient rh Status Prepregnancy Weight lbs Domestic Partner Domestic Partner Phone Father Name Airfield Operations Specialist Status 08/05/19 25 1 CLOSED Fetus Data First Name Last Name Admitted to NICU Weight (g) Sex Living Outcome Pediatric Complications Fetus ID Race Codes Race Delivery Type 3572.03 7 M Full Term [id number] Vaginal Delivery Live Calculation Initial Live Date Initial Exam Date Initial Exam Provider Initial Ultrasound Date Last Menstrual Period Date Ultra Sound Weeks Gestation 0 Eighteen To Twenty Week Live Update Ultra Sound Date Fundal Height At Umbil Quickening Date Ultra Sound Latest Weeks Gestation Final Live Confirmed By Final Live Confirmed Date Final Live Date Ultra Sound Latest Days Gestation 0 0 Menstrual History Last Menstrual Date Menses Monthly On Bcp Conception Prior Menses Frequency Hcg Plus Date Menarche Onset Age Delivery Information Delivery Date Delivery Type Labor Anesthesia Weeks Gestation Incision Type Labor Labor Length Hrs Delivered By Post Complications Tubal Sterilization Discharge Date Comments 9 39 Discharge Information Feeding Method Contraceptive Method Maternal HG B and HCT Levels
--- OUTSIDE RECORDS SUMMARY | 2025-06-16 03:44 | XMS_ITS | Clinical Summary ---
Author Organization [facility] Address [address] [place] [address] Phone Care Team Providers Care Cargo Mate Name Role Phone Maryanne Gill MD Unavailable Allergies Active Allergy Reactions Criticality Noted Date Comments Penicillins Hives 11/03/2021 Medications No known medications Active Problems No known active problems Family History Medical History Relation Name Comments No Known Problems Father No Known Problems Mother Relation Name Status Comments Father Alive Mother Alive Social History Tobacco Use Types Packs/Day Years Used Date Smoking Tobacco: Never Smokeless Tobacco: Never Tobacco Cessation:Counseling Given: No Alcohol Use Standard Drinks/Week Comments Never 0 (1 standard drink = 0.6 oz pur e alcohol) PHQ-2 Answer Date Recorded Total Score - Questions 1-9 0 0 11/2021 Sexually Active Control Partners Comments Not Currently Comments No Sex and Gender Information Value Date Recorded Sex Assigned at Not on file Legal Sex Female 3:59 PM CDT Gender Identity Not on file Sexual Orientation Not on file Last Filed Vital Signs Vital Sign Reading Time Taken Comments Blood Pressure 126/72 10/01/2023 11:37 AM CDT Pulse 80 10/01/2023 11:37 AM CDT Temperature 36.5 C (97.7 F) 10/01/2023 11:37 AM CDT Respiratory Rate 16 10/01/2023 11:37 AM CDT Oxygen Saturation 98% 10/01/2023 11:37 AM CDT Inhaled Oxygen Concentration - - Weight 89.4 kg (197 lb) 10/01/2023 11:37 AM CDT Height 162.6 cm (5' 4) 10/01/2023 11:37 AM CDT Body Mass Index 33.81 10/01/2023 11:37 AM CDT Plan of Treatment Health Maintenance Due Date Last Done Comments Hepatitis C Virus (HCV) Screening 1999 Pap Smear 02/17/2020 Influenza Immunization (#1) 2025 SARS-COV-2 Immunization ( season) 2025 Respiratory Syncytial Virus (RSV) Immunization (Adult) (1 - 1-dose 75+ series) 2074 Hepatitis B Immunization Completed 000, 1999, 1999, Additional history exists Pneumococcal Immunization Combined Aged Out 06/07/2000 No longer eligible based on patient's age to complete this topic DTaP/Tdap/Td Immunization Discontinued 2009, 11/26/2003, 09/06/2000, Additional history exists TdaP Immunization Completed 12/07/2009 Varicella Immunization Completed 12/07/2009, 2001 Human Papillomavirus (HPV) Immunization Completed 07/27/2013, 07/20/2013, 02/26/2013, Additional history exists Meningococcal Immunization (ACWY) Completed 12/13/2015, 12/13/2010 Rotavirus Immunization Aged Out No lo nger eligible based on patient's age to complete this topic Insurance MEDICAID [place] Care Teams Cargo Mate Relationship Specialty Start Date End Date Maryanne Gill MD [address] [place] [address] Obstetrics & Gynecology 11/03/21
--- OUTSIDE RECORDS SUMMARY | 2025-06-16 03:44 | XMS_ITS | Continuity of Care Document ---
Author Organization [facility] Address [address] [place] [address] Care Team Providers Care Folder Inspector Name Role Phone ROSA CUMMINGS Primary Care Provider [phone] Assessment No assessment recorded. Plan of Treatment Reminders Order Date Submit [...] salpingec jamie, laparosco pic (SURG) [address], [facility] [address], [address], 06/02/2025 10:06:43 laparosco py, diagnosti c (SURG) [address], [facility], [address], 05/25/2025 09:53:41 hysterosc opy, with endometri al ablation (SURG) [address], [facility] [address], [address], 05/28/2025 10:03:55 Imaging None recorded. Medication Orders None recorded. Patient TargetsNo targets recorded. Patient InstructionsNo instructions recorded. Reason for Referral None Reported. Problems Name Problem SNOMED Code Status Onset Date Resolution Date Notes Provider Name and Address Organization Details Recorded Time Past pregnanc y history of gestatio nal rizwanaen cierra 919828238 Active 2021 pregnanc y bASA daily Lucero Breen [facility] 5 22:33:48 Past pregnanc y history of gestatio nal hyperten cierra 179333484 Completed 2021 pregnanc y bASA daily Lucero Breen [facility] 5 22:33:48 Body mass index 30+ - obesity 832933476 Completed nst 37wks--- pt declined NST Maryanne Garvey [facility] 5 18:08:32 Pregnanc y 91763007 Completed 202401/06/[address] [facility] 5 14:23:18 Headache 43294268 Active [address] [facility] 5 20:00:40 Mixed anxiety and depressi ve disorder 339994032 Active [address] [facility] 5 10:43:20 Problem Notes None recorded. Procedures Surgical History Date Name Laterality Status Provider Name and Address Organization Details Recorded Time 4 Date of Last Pap Smear completed Maryanne Garvey [facility] 08/05/2024 19:51:50 8 Dilation and Curettage completed Maryannecolleen Garvey [facility] 08/05/2024 19:56:49 5 extraction of wisdom tooth completed Maryannecolleen Garvey [facility] 08/05/2024 19:56:37 Imaging Results None recorded. Procedure Notes None recorded. Medical Equipment None Reported. Allergies Allergen ID Allergen Name Allergen Category Reaction Reaction Severity Criticality Documentation Date Start Date Code Code System Note Provider Name and Address Organization Details Recorded Time 77276 Penicilli n Not available hives mild Not available 08/05/2024 76878 RxNorm Maryanne paniagua [facility] 19:50:07 52532 Product containin g penicilli n (product) medicatio n hives Not available Not available 05/22/20252021 77666 8001 SNOMED Not Available onelia - External Data Service - prod 02:39:42 [...] Updated DateTime 05/22/2025 162.56 cm 35.4 kg/m2 63881.03 g 127/79 mm[Hg] Merary Delgado [facility] 05/22/2025 11:28:48 Social History Question Answer Notes LastModified by Organizat ion Details LastModified Time Tobacco Smoking Status Never Smoker Maryanne Garvey [facility] 08/05/2024 19:56:18 Do You Have An Advance Directive? No [email or web address] Information n ot available 08/05/2024 If You Are , What Was Your Level Of Alcohol Consumption Prior To ? None Information not available 08/05/2024 Are You Blind Or Do You Have Difficulty Seeing? No [email or web address] Information n ot available 08/05/2024 What Is Your Level Of Caffeine Consumption? Moderate [email or web address] Information not available 08/05/2024 How Much Tobacco Do You Chew? None [email or web address] Information not available 08/05/2024 In The 14 Days Before Symptom Onset, Have You Had Close Contact With A Laboratory-confirm ed COVID-19 While That Case Was Ill? No [email or web address] Information n ot available 08/05/2024 In The 14 Days Before Symptom Onset, Have You Had Close Contact With A Person Who Is Under Investigation For COVID-19 While That Person Was Ill? No [email or web address] Information not available 08/05/2024 Have You Been To An Area Known To Be High Risk For COVID-19? No [email or web address] Information not available 08/05/2024 Are You Deaf Or Do You Have Serious Difficulty Hearing? No [email or web address] Information not available 08/05/2024 What Type Of Diet Are You Following? REGULAR [email or web address] Information n ot available 08/05/2024 What Is The Highest Grade Or Level Of School You Have Completed Or The Highest Degree You Have Received? [id number] [email or web address] Information not available 08/05/2024 Are There Any Guns Present In Your Home? Yes [email or web address] Information not available 08/05/2024 Do You Use Protection During Sex? Usually [email or web address] Information not available 08/05/2024 Do You Use Your Seat Belt Or Car Seat Routinely? Yes [email or web address] Information not available 08/05/2024 Do You Have Smoke And Carbon Monoxide Detectors In Your Home? Yes [email or web address] Information not available 08/05/2024 How Much Tobacco Do You Smoke? No [email or web address] Information not available 08/05/2024 Do You Use Sunscreen Routinely? No Information not available 08/05/2024 Has Tobacco Cessation Counseling Been Provided? No [email or web address] Information not available 08/05/2024 Have You Used IV Drugs? No [email or web address] Information not available 08/05/2024 Do You Have Difficulty Walking Or Climbing Stairs? No [email or web address] Information not available 08/05/2024 Sex: Unknown Functional Status Question Answer Note LastModified by Organizat ion Details LastModified Time Do you use any illicit or recreational drugs? No [email or web address] Information not available 08/05/2024 Do you or have you ever used any other forms of tobacco or nicotine? No [email or web address] Information not available 08/05/2024 What is your level of alcohol consumption? None [email or web address] Information not available 08/05/2024 Are you able to walk independently without assistance or assistive devices? YESWOREST [email or web address] Information not available 08/05/2024 Are you able to care for yourself independently? Yes [email or web address] Information not available 08/05/2024 Do you have difficulty dressing, bathing, grooming, or toileting? No [email or web address] Information not available 08/05/2024 What is your exercise level? Moderate [email or web address] Information not available 08/05/2024 Mental Status Question Answer Note LastModified by Organization D etails LastModified Time Do you feel stressed (tense, restless, nervous, or anxious, or unable to sleep at night)? [id number] [email or web address] Information not available 08/05/2024 Family History Relationship Description Onset Age of this Age Resolved Age Notes LastModified by Organization Details LastModified Time Unspecified Relation Family history unknown [email or web address] Not available 08/05 19:50:07 Maternal Grandfather Diabetes mellitus [email or web address] Not available 08/05 19:55:13 Maternal Grandmother Diabetes mellitus [email or web address] Not available 08/05 19:55:13 Paternal Grandfather Diabetes mellitus [email or web address] Not available 08/05 19:55:13 Paternal Grandfather Coronary arterioscler osis [email or web address] Not available 2024 12:28:48 Paternal Grandfather Hypertensive disorder [email or web address] Not available 08/05 19:55:41 Paternal Grandmother Diabetes mellitus [email or web address] Not available 08/05 19:55:13 Paternal Grandmother Hypertensive disorder Not available 08/05 19:55:41 Father Hypertensive disorder [email or web address] Not available 08/05 19:55:41 Father Hypercholest erolemia [email or web address] Not available 08/05 19:55:50 Medical History Condition Response Allergies (Food, seasonal, environmental ) N Other N Breast Cancer N Drug/Latex Allergies/Reactions N Blood Transfusion N Dermatologic Disorders N Lung Disease N Defects or Inherited Disease N Breast Problem N Gestational Diabetes N Hematologic disorders N Anesthesia Complications N History of STI N Deep Vein Thrombosis N Polycystic ovary syndrome N Anxiety Disorder Y Autoimmune disease N Arthritis N Infertility N Polyps N Acid Reflux (GERD) N History of abnormal pap N Cancer N Stroke N Varicosities N Neurologic/Epilepsy N Endometriosis N High Cholesterol N Headaches Y Fibromyalgia N Kidney Disease N Heart Problems N Kidney or Bladder Problems N Thyroid Problems N GI Problems N Eating Disorder [...] ICD10 Code Diagnosis IMO Codes Diagnosis Note [id number] Fadi Renteria MD [place] [address] [address] 05/22/2025 11:19:15 05/22/2025 12:33:55 Menorrhagia 437204494 N92.0 This patient is a 25-year-ol d [...] in total. Pain in female pelvis 42 8129006 R10.20 [id number] Unwanted fertility 18645 5005 Z30.09 [id number] Health Concerns Section Related Observation LastModified by Organization Detai ls LastModified Time None Recorded Concern Status LastModified by Organization Details LastModified Time None Recorded Payers Encounter Date Sequence Insurance Name Policy Number Policy South Covered Member ID South Member ID Guarantor Name 05/22/2025 1 [facility] [id number] Castillo Le [id number] Nevaeh Curry Notes Date Note Type Note Provider Name and Address Organization Details Recorded Time 05/22/2025 text/html This patient is a 25-year-old female [...] total. Fadi Renteria MD [address], [place], [address], [facility] 05/22/2025 12:30:58 OBGyn Episode No OBEpisode recorded.
[2025-06-16] MEDS: ACETAMINOPHEN 500 MG TABLET 1000 MG PO (12:20)
--- NOTE | 2025-06-16 12:52 | PM.IMHP2 ---
H&P: HPI History of Present Illness Date/Time: 06/16/25 12:52 Chief Complaint: Heavy vaginal bleeding Narrative: This patient is a 25-year-old female presents for heavy vaginal bleeding. She has longstanding very heavy bleeding. Her menses are regular. However, they require double protection. Patient has accidents, getting blood on her bedding and clothing. Is affected work. She changes a pad or tampon every hour. She leaks blood around the pad and tampon. This bleeding has a profound impact on her quality of life and her activities of daily living. discussed treatment in detail. agreed to endometrial ablation. Patient understands that laparoscopic bilateral salpingectomy be required. Patient also talks about pelvic pain. We agreed to examined the pelvis via diagnostic laparoscopy at the time of salpingectomy. The patient understands the procedure. The procedure was described to the patient in great detail. the patient also understands the risks. The risks were also explained in detail. She understands that injuries May occur during surgery. She understands these injuries can result in hospitalization, more surgery, and severe illness. She understands there is risk of hemorrhage and infection. Review of Systems Review of Systems: All systems reviewed & are unremarkable except as noted in HPI and below Constitutional: Constitutional: Denies chills, Denies fatigue, Denies fever(s) and Denies weakness Eyes: Eyes: Denies blurry vision, Denies change in vision, Denies loss of peripheral vision, Denies loss of vision, Denies other visual disturbances and Denies eye pain ENT: Denies vertigo, Denies dizziness, Denies hearing loss, Denies mouth pain, Denies nasal obstruction, Denies neck mass and Denies neck pain Cardiovascular: Cardiovascular: Denies chest pain, Denies diaphoresis, Denies syncope, Denies leg edema and Denies dyspnea Respiratory: Respiratory: Denies chest congestion, Denies cough, Denies hemoptysis, Denies dyspnea and Denies wheezing Gastrointestinal: Gastrointestinal: Denies abdominal pain, Denies constipation, Denies diarrhea, Denies nausea and Denies vomiting Genitourinary: Genitourinary: Denies hematuria, Denies change in libido, Denies nocturia, Denies genital lesions, Denies flank pain and Denies urinary urgency Musculoskeletal: Musculoskeletal: Denies abnormal gait, Denies back pain, Denies myalgias, Denies arthralgias, Denies joint swelling, Denies muscle weakness and Denies neck pain Integumentary/Breasts: Skin/Breast: Denies swelling, Denies breast pain, Denies breast mass, Denies dry skin, Denies nipple discharge, Denies unusual bruising and Denies jaundice Neurologic: Denies Neuro-related abnormal movements, Denies Abnormal speech present, Denies abnormal gait, Denies behavioral changes, Denies confusion, Denies vertigo, Denies dizziness, Denies syncope, Denies loss of vision, Denies memory loss, Denies convulsions and Denies weakness Psychiatric: Psychiatric: Denies abnormal sleep pattern, Denies behavioral changes, Denies change in libido, Denies confusion, Denies depression, Denies anhedonia and Denies memory loss Endocrine: Endocrine: Reports no additional endocrine complaints, Denies change in libido and Denies fatigue Hematologic/Lymphatic: Hematologic/Lymphatic: Reports no additional hematologic/lymphatic complaints Allergic/Immunologic: Allergic/Immunologic: Reports no additional allergic/immunologic complaints and Denies wheezing [facility] Surgical History Surgical History S/P cholecystectomy Family History Family History Father Hypertension High cholesterol Mother Hypertension Social History Social History Smoking status: Current some day smoker Tobacco type: e-cigarettes/vaping Second hand tobacco smoke exposure: No Additional smoking assessment comments: VAPES OCCASSIONALLY Alcohol intake: never Substance use: never Substance use type: does not use Lack of Transportation: No Lack of Food: Never True Current Housing: I Have Housing Concerned About Future Housing: No Difficulty Paying Gas/Electric Bills: No Difficulty Paying for Meds: No Currently Unemployed: No Education: High School Diploma/GED Difficulty w/ Childcare or Family Care: No Living arrangements: with family Gender identity (if verbalized by the patient): Female Spiritual care concerns: No Meds Home Medications and Allergies Home Medications ?Medication ?Instructions ?Recorded ?Confirmed ?Type fluoxetine 40 mg capsule 40 mg PO DAILY 06/14/25 06/14/25 History Allergies Allergy/AdvReac Type Severity Reaction Status Date / Time Penicillins Allergy Intermediate Hives / Verified 06/14/25 08:32 Red Face Exam Const: General: cooperative, healthy appearing, comfortable and no acute distress Orientation/consciousness: oriented to person, oriented to place and oriented to time HENMT: Head: normal to inspection Ears: external ears normal Face/Nose/Sinus: Normal external nose present and normal facial exam Face and sinus: normal facial exam Eyes: General: appearance normal, both eyes and all related structures Neck: Neck: normal visual inspection, trachea midline and supple Resp: Auscultation: clear to auscultation bilaterally, no crackles, no rales, no rhonchi and no wheezes Cardio: Rate: regular rate Rhythm: regular rhythm Heart sounds: no click, no murmurs and no rubs GI: GI Palp: No abdominal tenderness, No Soft to palpation, No Tenderness to palpation present (GI) and No Palpable mass present Auscultation: normal bowel sounds Skin: General skin exam: normal color and no rashes or lesions noted Neuro: General: oriented to person, oriented to place and oriented to time Extrem: General: normal to inspection, no joint enlargement, no clubbing, cyanosis or edema, no pedal edema and no calf tenderness Psych: Appearance: grossly normal Mental Status: mental status grossly normal Speech and movement: Normal speech and movement present Assessment and Plan Assessment and plan (1) Menorrhagia: Code(s): N92.0 - Excessive and frequent menstruation with regular cycle Status: Acute (2) Unwanted fertility: Code(s): Z30.09 - Encounter for other general counseling and advice on contraception Status: Acute (3) Pelvic pain: Code(s): R10.20 - Pelvic and perineal pain unspecified side Status: Acute Plan This patient is a 25-year-old female with menorrhagia, pelvic pain, unwanted fertility. We agreed to perform laparoscopic bilateral salpingectomy with diagnostic laparoscopy and endometrial ablation with hysteroscopy. She understands risks, benefits, and alternatives. She has completed the informed consent process is ready to proceed.
--- NOTE | 2025-06-16 12:54 | WPDHPUPDATE1 ---
History and Physical Update Update Date/Time: 06/16/25 12:54 History and Physical has been reviewed, including an updated exam of the patient. There are NO changes in the patient's condition. Risks, benefits, and alternatives have been discussed and questions answered. Patient agrees to proceed with procedure.
--- NOTE | 2025-06-16 13:12 | WPDANESEPPF ---
Anes - Initial Pre Proc Eval Procedure: Operation Date: 06/16/25 14:30 Proposed Procedures p Hysteroscopy with Endometrial Ablation, Diagnostic Laparoscopy with Bilateral Salpingectomy - Fadi Renteria MD Date/Time: 06/16/25 13:12 Surgeon: Fadi Renteria MD Pre Op Diagnosis: menorrhaghia,pelvic pain,sterilization Patient Data Age: 25 Gender: F Height: 1.63 m Weight: 93.6 kg Last Vital Signs Temp 97.6 F 06/16/25 12:13 Pulse 71 06/16/25 12:13 Resp 14 06/16/25 12:13 BP 127/70 06/16/25 12:13 Pulse Ox 99 06/16/25 12:13 O2 Del Method Room Air 06/16/25 12:13 Allergies Allergy/AdvReac Type Severity Reaction Status Date / Time Penicillins Allergy Intermediate Hives / Verified 06/14/25 08:32 Red Face Home Medications ?Medication ?Instructions ?Recorded ?Confirmed ?Type fluoxetine 40 mg capsule 40 mg PO DAILY 06/14/25 06/14/25 History Patient hx anesthesia problems: none Family hx anesthesia problems: none Results Review: All pre-operative results and documents have been reviewed as part of the pre-operative evaluation. [facility] Surgical History Surgical History S/P cholecystectomy Family History Family History Father Hypertension High cholesterol Mother Hypertension Social History Social History Smoking status: Current some day smoker Tobacco type: e-cigarettes/vaping Second hand tobacco smoke exposure: No Additional smoking assessment comments: VAPES OCCASSIONALLY Alcohol intake: never Substance use: never Substance use type: does not use Lack of Transportation: No Lack of Food: Never True Current Housing: I Have Housing Concerned About Future Housing: No Difficulty Paying Gas/Electric Bills: No Difficulty Paying for Meds: No Currently Unemployed: No Education: High School Diploma/GED Difficulty w/ Childcare or Family Care: No Living arrangements: with family Gender identity (if verbalized by the patient): Female Spiritual care concerns: No Anes - Eval Final PreProcedure Day of Procedure 06/16/25 13:12 Patient weight: obese Lungs: normal air movement Airway: Mallampati scale class II Neurological: alert and oriented Last oral intake: >/= 8 hours ASA classification: II Emergent: no Anesthetic plan: proceed Anesthesia type and monitoring: general ETT and standard monitoring Results Review: All pre-operative results and documents have been reviewed as part of the pre-operative evaluation. Pt w BMI 35, active, no cp or sob. Informed Consent: The patient's anesthetic plan and its attendant risks and benefits were discussed with the patient/family/POA. Questions were solicited and answers provided to the satisfaction of the patient/family/POA.
[2025-06-16] MEDS: SCOPOLAMINE 1 MG PATCH 1 PATCH TRANSDERM (13:13)
--- NOTE | 2025-06-16 14:27 | S_PTH ---
PATIENT: Nevaeh Curry LOC: [facility] U#:[id number] AGE/SX: 25/F ROOM: RE06/16/[address]: Fadi Renteria MD : 2000 BED: DIS: 06/16/2025 SPEC #: [id number] RECD: 06/17/25 08:11 STATUS: DOROTA REAngel #: [id number] KELLI: 06/16/25 14:[address]: Fadi Renteria DEPT: [facility] Surgical RECD BY: Linda Irby Tissues: A - Peritoneum B - Fallopian Tube Bilateral C - Peritoneum Procedures: Gross and Microscopic Level 2 Hematoxylin and Eosin Stain Gross and Microscopic Level 4
--- NOTE | 2025-06-16 15:31 | P.OP_ITS ---
Procedure Note - Detailed Date of Procedure 06/16/25 Pre-op Diagnosis menorrhaghia,pelvic pain,sterilization Post-op Diagnosis Same ( endometriosis) Procedure Performed radical resection of endometriosis, bilateral salpingectomy, endometrial ablation with hysteroscopy. Surgeon Fadi Renteria MD Anesthesia General Indications pelvic pain Findings multiple endometriosis implants in the posterior cul-de-sac. Classic endometriosis with dark clusters of hemorrhagic tissue with surrounding scarring and vascularity, otherwise normal appearing uterus tubes and ovaries. Normal vulva, vagina, cervix and endometrium. Description of Procedure The patient was taken to the operating room. She was prepped and draped in the dorsal lithotomy position after induction general anesthesia. A 5 mm incision was made with a scalpel on the abdominal skin in the left upper quadrant of the abdomen. A 5 mm trocar was inserted into the intra-abdominal cavity under direct visualization the scope. In the same fashion a 5 mm left lower quadrant trocar was inserted and a 5 mm infraumbilical trocar was inserted. The ovaries were suspended. This was done using Dexter-Junior Endoclose needle and 0 Vicryl. The bilateral lower quadrants were pierced with the Dexter-Junior needle while being transilluminated. They were carrying an 0 Vicryl suture which was passed through the ovary bilaterally brought back out t hrough the same incision/puncture site. They were held in place on the skin surface with a hemostat. A NEDRA manipulator was placed in the intrauterine cavity using speculum and tenaculum. It was anteflexed. This revealed the entire posterior cul-de-sac clearly. The posterior cul-de-sac peritoneum was removed completely With the exception of the deepest cul-de-sac areas which were fulgurated And the peritoneum over the rectum. From the infundibulopelvic ligament and suspensory ligament ovary laterally to the rectum medially the peritoneum was caudal cephalad dimension was from the pelvic brim down to the uterine arteries Then cervix. This was done with sharp and blunt dissection and cautery. The ureters were dissected out and isolated. Areas in the deepest posterior cul-de-sac were cauterized. There was some very mild endometriotic lesions in this area. The bilateral fallopian tubes were removed. This was done by using a LigaSure cautery. The mesosalpinx adjacent to the tube was cauterized transected with LigaSure. This was initiated in the area the ovary and in a stepwise fashion moved medially to the area of the cornu of the uterus. Once there the fallopian tube was cauterized and transected. This was done in identical fashion on each side. The fallopian tubes were taken out through the left lower quadrant trocar site. The pelvis was irrigated. Copious amounts of irrigation were used. Interceed was placed over the dissected areas bilaterally. Two pieces were used. The pneumoperitoneum was reduced. The trocars were removed. Skin was closed with subcuticular 4 micro. The patient's incisions were covered with Dermabond. She was taken recovery room in stable condition. Sponge lap and needle counts were correct x2. The patient was taken to the operating room. She was prepped and draped in the dorsal lithotomy position after induction of mac anesthesia. A speculum was placed in the vagina. Cervix grasped with a tenaculum. The cervix was dilated to about 1 cm. The hysteroscope was inserted. The above findings were noted. Endometrial curettage was performed with a medium-size curette. All surfaces of the endometrium were affected by the curettage. The specimens were collected and sent to pathology. Measurements were taken of the uterus and cervix. The uterine length was then entered into the hand piece of the Ashlie device. The device was inserted into the intrauterine cavity. The array of the device was expanded. The balloon cuff was inflated. A good seal was achieved. The energy and safety cycles were initiated and completed. The array was collapsed and the instrument was withdrawn after deflating the balloon cuff. Hysteroscope was reinserted. Above findings were noted. The hysteroscope was removed. The patient tolerated the procedure well. The speculum and tenaculum were removed. She was taken to recovery in stable condition. Sponge lap and needle counts were correct x2. Estimated Blood Loss -50.0 Urine Output -200.0 Complications No immediate complications Condition Stable Disposition Same day
[2025-06-16] MEDS: LACTATED RINGERS 1,000 ML 30 ML IV CONT (15:44)
[2025-06-16] MEDS: HYDROmorphone HCL INJ (*CRX) 1 MG/ML SYR 0.25 MG IV PUSH ×5 (16:08→16:41)
[2025-06-16] MEDS: oxyCODONE HCL (*CRX) 5 MG TAB IR PO (16:58)
--- NOTE | 2025-06-16 18:21 | SUR.PHASEII ---
1820: Patient dressed and ready for dc and waiting on ride.
[2025-06-16] MEDS: ONDANSETRON INJ 4 MG/2 ML VIAL IV PUSH (18:30)
== END 2025-06-16 18:55 | disposition home or self-care (01) ==
PROVIDERS: Visit Provider Obstetrics & Gynecology
PROC: 0UDB8ZZ Extraction of Endometrium, Via Natural or Artificial Opening Endoscopic (ICD-10-PCS; CPT 58558; principal; 2025-06-16 14:30)
DX: N92.0 Excessive and frequent menstruation with regular cycle (principal); N80.329 Endometriosis of the posterior cul-de-sac, unspecified depth; R10.20 Pelvic and perineal pain unspecified side; Z30.2 Encounter for sterilization
CPT/HCPCS: 58661; 58563; 58662; 88302; 88305; A9270; J1100; J1171; J2250; J2405; J2704; J3010; J7030; J7120